=== PATIENT | male | born 1945 | race African-American/Black ===

== ENCOUNTER 2022-08-10 12:22 | Outpatient (REF) | payer MEDICARE, MEDICAID, SELFPAY ==
[2022-08-10 14:03] LABS: MANUAL DIFF FLAG NO
[2022-08-10 14:21] LABS: Basophils Absolute Auto 0.1 X10*3/uL (0.0-0.2); Basophils Percent Auto 0.9 % (0-2); Eosinophils Absolute Auto 0.4 X10*3/uL (0.0-0.4); Eosinophils Percent Auto 6.7 % (0-4); Hematocrit 37.2 % (42.0-52.0); Hemoglobin 11.8 g/dl (14.0-18.0); Imm Gran Abs Auto 0.02 X10*3/uL (0.00-0.03); Imm Gran Pct Auto 0.3 % (0.0-0.4); Lymphocytes Absolute Auto 1.8 X10*3/uL (1.2-4.9); Lymphocytes Percent Auto 27.3 % (20-40); Mean Corpuscular HGB Conc 31.7 g/dl (31.0-36.0); Mean Corpuscular Hemoglobin 26.6 pg (27.0-33.0); Mean Corpuscular Volume 83.8 fL (80.0-98.0); Mean Platelet Volume 11.9 fL (9.4-12.4); Monocytes Absolute Auto 0.7 X10*3/uL (0.1-1.2); Monocytes Percent Auto 11.5 % (2-11); Neutrophils Absolute Auto 3.4 x10*3/uL (2.0-8.3); Neutrophils Percent Auto 53.3 % (45-73); Platelet Count 208 X10*3/uL (160-400); Red Blood Count 4.44 X10*6/uL (4.60-5.80); Red Cell Distribution Width 16.1 % (11.0-16.0); White Blood Count 6.5 X10*3/uL (4.8-10.8)
[2022-08-10 14:40] LABS: Estimated Average Glucose 126 mg/dL
[2022-08-10 15:06] LABS: Alanine Aminotransferase 12 U/L (0-40); Albumin Level 3.9 g/dL (3.5-5.0); Alkaline Phosphatase 94 U/L (39-117); Anion Gap 10 (12-20); Aspartate Amino Transferase 11 U/L (5-37); Bilirubin Total 1.4 mg/dL (0.0-1.0); Blood Urea Nitrogen 16 mg/dL (9-16); Calcium 9.4 mg/dL (8.4-10.2); Carbon Dioxide 27 mmol/L (22-29); Chloride 103 mmol/L (96-108); Estimated Glomerular Filt Rate > 60; Glucose Fasting 116 mg/dL (60-99); Potassium 4.2 mmol/L (3.3-5.1); Sodium 136 mmol/L (135-145); TSH reflex Free T4 2.71 uIU/mL (0.32-4.0)
[2022-08-10 15:46] LABS: Total Protein 7.5 g/dL (6.5-8.0)
[2022-08-10 16:11] LABS: Folate 5.6 ng/mL (> or = 4.0); Vitamin B12 320 pg/mL (200-900)
[2022-08-10 16:33] LABS: Cholesterol 188 mg/dL; HDL Cholesterol 46 mg/dL; Iron 53 mcg/dL (45-160); LDL Cholesterol Calculated 124 mg/dl; Percent Iron Saturation 23 % (15-50); Total Iron Binding Capacity 234 mcg/dL (228-428); Triglycerides 94 mg/dL; Unsaturated Iron Binding 181 ug/dL
[2022-08-16 00:54] LABS: PSA, Ultra Sensitive 6.88 ng/mL
== END 2022-08-10 12:23 | disposition home or self-care (01) ==
LOC: HO.WFDLDS 12:22
PROVIDERS: Visit Provider Nurse Practitioner Family
DX: Z12.5 Encounter for screening for malignant neoplasm of prostate (principal); E11.9 Type 2 diabetes mellitus without complications
CPT/HCPCS: 36415; 80053; 80061; 82607; 82746; 83036; 83540; 84153; 84443; 85025

== ENCOUNTER 2022-12-07 09:42 | Outpatient (REF) | payer MEDICARE, MEDICAID, SELFPAY ==
[2022-12-07 10:41] LABS: Hematocrit 39.9 % (42.0-52.0); Hemoglobin 12.7 g/dl (14.0-18.0); Mean Corpuscular HGB Conc 31.8 g/dl (31.0-36.0); Mean Corpuscular Volume 84.7 fL (80.0-98.0); Mean Platelet Volume 12.1 fL (9.4-12.4); Platelet Count 190 X10*3/uL (160-400); Red Blood Count 4.71 X10*6/uL (4.60-5.80); Red Cell Distribution Width 18.2 % (11.0-16.0); White Blood Count 5.1 X10*3/uL (4.8-10.8)
[2022-12-07 11:11] LABS: Alanine Aminotransferase 16 U/L (0-40); Albumin Level 3.9 g/dL (3.5-5.0); Alkaline Phosphatase 102 U/L (39-117); Anion Gap 12 (12-20); Aspartate Amino Transferase 18 U/L (5-37); Blood Urea Nitrogen 16 mg/dL (9-16); Calcium 9.3 mg/dL (8.4-10.2); Carbon Dioxide 27 mmol/L (22-29); Chloride 106 mmol/L (96-108); Cholesterol 199 mg/dL; Estimated Glomerular Filt Rate > 60; Glucose Fasting 144 mg/dL (60-99); HDL Cholesterol 49 mg/dL; Iron 70 mcg/dL (45-160); LDL Cholesterol Calculated 138 mg/dl; Percent Iron Saturation 27 % (15-50); Potassium 4.4 mmol/L (3.3-5.1); Sodium 141 mmol/L (135-145); Total Iron Binding Capacity 260 mcg/dL (228-428); Total Protein 7.3 g/dL (6.5-8.0); Triglycerides 63 mg/dL; Unsaturated Iron Binding 190 ug/dL
== END 2022-12-07 09:43 | disposition home or self-care (01) ==
LOC: HO.WFDLDS 09:42
PROVIDERS: Visit Provider Nurse Practitioner Family
DX: E11.9 Type 2 diabetes mellitus without complications (principal)
CPT/HCPCS: 36415; 80053; 80061; 83540; 85027

== ENCOUNTER 2023-06-04 09:25 | Outpatient (REF) | payer MEDICARE, MEDICAID, SELFPAY ==
[2023-06-04 12:25] LABS: Cholesterol 141 mg/dL (<200); HDL Cholesterol 45 mg/dL (>40); LDL Cholesterol Calculated 85 mg/dL (<100); Triglycerides 56 mg/dL (<150)
== END 2023-06-04 09:26 | disposition home or self-care (01) ==
LOC: HO.WFDLDS 09:25
PROVIDERS: Visit Provider Nurse Practitioner Family
DX: N40.0 Benign prostatic hyperplasia without lower urinary tract symptoms (principal); E11.9 Type 2 diabetes mellitus without complications
CPT/HCPCS: 36415; 80061

== ENCOUNTER 2023-06-06 12:47 | Outpatient (AMB) | payer MEDICARE, MEDICAID, SELFPAY ==
[2023-06-06 12:50] VITALS: BP 118/70; PULSE 58; RESP 12; TEMP 36.6; O2SAT 99; BMI 25.2
--- NOTE | 2023-06-06 12:50 | MHC.PC.OV ---
Vital Signs 06/06/23 12:50 Height 5 ft 5 in Weight 151 lb 6 oz BMI 25.2 BP 118/70 Blood Pressure Location Lt brachial Position Sitting Respiration 12 Pulse 58 Pulse Source Pulse Oximeter Temp 97.9 F Temp Source Temporal Artery Scan Pulse Oximetry (%) 99 Oxygen Delivery Method Room Air Intake Visit Reasons: 3 mos DM Intake Note: Patient states that his left leg keeps catching cramps that then spread to the next leg. Patient states that left leg was the leg that was used to remove veins for a heart procedure that was done. Client Liaison Required: No Accompanied by: Self / Same As Patient Allergies No Known Allergies Allergy (Verified 06/06/23 13:11) Medication List - Last Reconciled 06/06/23 by Sebas Titus CNP atorvastatin 80 mg PO BEDTIME 30 days clopidogrel 75 mg PO DAILY 90 days cyclobenzaprine 10 mg PO BID PRN empagliflozin (Jardiance) 10 mg PO DAILY gabapentin 300 mg PO DAILY 30 days losartan 50 mg PO DAILY 30 days meloxicam 7.5 mg PO DAILY PRN metformin 500 mg PO BID 30 days metoprolol tartrate 50 mg PO BID 30 days mirtazapine 7.5 mg PO BEDTIME 90 days sodium chloride 1,000 mg PO DAILY tamsulosin 0.4 mg PO BEDTIME Tobacco use date assessed: 12/06/22 Fall risk assessment: No Falls in past year Last assessed Fall Risk: 06/06/23 Dental Screening Dental Screen Date: 06/06/23 Did you have a dental visit in the last 12 months?: No Did you have a dental problem in the last 6 months where you did not have access to dental care?: No Was dental information given to patient?: Yes HPI HPI Comments History of Present Illness Details 77-year-old male presents for diabetes follow-up He is on Jardiance and metformin which he notes he has been taking as prescribed He notes he walks a lot and have been maintaining a healthy diet. He reports intermittent cramps to his BLE at least once a week. He states that his symptoms are aggravated by prolonged walking. No acutes symptoms at this time. He notes that his last eye exam was 15 months ago. 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 He notes he has never been evaluated by Podiatry. [facility] Surgical History H/O heart surgery Family History Father Stroke Mother No problems noted. Social History Housing: Apartment Patient Tobacco Use Status: Never used Tobacco e-Cigarette/Vaping Use: Never Used Second Hand Smoke Exposure: No service: Yes Current occupational status: employed Current occupation: [employer] Cognitive needs: No Hearing needs: No Vision needs: No Questionnaire Thrive Questionnaire Date Thrive assessed: 08/10/22 OLIVER-7 AMB Questionnaire OLIVER-7 Date OLIVER - 7 assessed: 12/06/22 Source: Developed by Drs. Reji Ford, Farhana Lawson, Jonnie Gomez and colleagues, with an educational jozef from [employer]. Review of Systems Const Details: Const Denies chills, Denies fatigue, Denies fever(s), Denies headache(s) and Denies weakness ENT Denies dizziness and Denies headache(s) Card Denies chest pain, Denies lightheadedness, Denies dyspnea and Denies other (Palpitations) Resp Denies cough, Denies dyspnea, Denies wheezing and Denies other ( shortness of breath) GI Denies abdominal pain, Denies melena, Denies hematochezia, Denies change in bowel habits, Denies dyspepsia and Denies nausea Denies hematuria and Denies dysuria Musc Denies abnormal gait, Denies myalgias, Denies arthralgias, Denies numbness and Denies tingling Skin/Breast Denies rash, Denies unusual bruising and Denies wounds Neuro Denies abnormal gait, Denies dizziness, Denies headache(s), Denies memory loss, Denies numbness, Denies Sensory deficit (Neuro), Denies tingling and Denies weakness Psych Denies anxiety, Denies depression, Denies memory loss Endo Denies cold intolerance, Denies fatigue, Denies heat intolerance, Denies polydipsia and Denies polyuria Aller/Immun Denies wheezing Physical exam (Primary Care) Vital Signs: Last Vital Signs Temp 97.9 F 06/06/23 12:50 Pulse 58 06/06/23 12:50 Resp 12 06/06/23 12:50 BP 118/70 06/06/23 12:50 Pulse Ox 99 06/06/23 12:50 Oxygen Delivery Method Room Air 06/06/23 12:50 BMI result Body Mass Index 25.2 Tobacco/Smoking Status: Tobacco use Status Tobacco use date assessed 12/06/22 06/06/23 12:50 Patient Tobacco Use Status Never used Tobacco 06/06/23 12:50 e-Cigarette/Vaping Use Never Used 06/06/23 12:50 Thrive Assessment: Date of Thrive Assessment Date Thrive assessed 08/10/22 06/06/23 12:50 Const Other: General: no acute distress and well developed Nutritional Appearance: well nourished Orientation/consciousness: patient oriented x3 HENMT Head: Yes normocephalic and Yes atraumatic Eyes General: appearance normal, both eyes and all related structures Pupils: Equal, round and reactive pupils present EOM: EOMs intact bilaterally Resp Effort & Inspection: normal respiratory effort Auscultation: clear to auscultation bilaterally Cardio Rate: regular rate Rhythm: regular rhythm Heart sounds: S1 normal heart sound present, S2 normal heart sound present, no gallops, no murmurs and no rubs GI Palpation (GI): No Abdominal aortic bruit present, Soft to palpation, nontender, No hepatosplenomegaly present and No Rebound tenderness present Auscultation: normal bowel sounds General: Yes no CVA tenderness Back/Spine/Pelvis Back: no CVA tenderness Cervical Spine: cervical ROM normal and No Cervical spine tenderness Thoracic/Lumbar Spine: thoraco-lumbar ROM normal, No pain with thoraco-lumbar ROM, No thoracic spinal tenderness and No lumbar spinal tenderness Extrem General: Yes normal to inspection, No edema and No calf tenderness Skin General: warm and dry. Normal skin color. Normal skin turgor Lesions: no lesions Rashes: no rashes Trauma: no lacerations or abrasions Wounds: no wounds Nails: normal Neuro General: patient oriented x3, gait normal and no focal neuro deficit Cranial nerves: Yes Equal, round and reactive pupils present Cognition (Neuro): normal cognition Gait exam (Neuro): Normal gait present Sensory Exam: No Sensory deficit (Neuro) Psych Appearance: grossly normal Affect: normal affect Attitude: cooperative Thought process: Normal thought process present Results AMB Hemoglobin A1c AMB Hemoglobin A1c 6.8 % Last Edit by Tosha Werner MA on 06/06/23 14:06 Assessment and Plan Assessment & Plan (1) Type 2 diabetes mellitus: Code(s): E11.9 - Type 2 diabetes mellitus without complications Qualifiers: Diabetes mellitus complication status: with neurologic complications Plan: His A1c today 6.8%, within goal of less than 7.0%. Previous A1c was 6.8% Recent LDL is 85, within goal of less than 100 Continue to take Jardiance and metformin as prescribed Take atorvastatin as prescribed ADA diet and routine exercise encouraged Follow-up in 3 months for diabetes, extended physical exam, and depression Return sooner with symptoms or concerns Verbalized understanding and agreed with treatment plan. 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 He has not been evaluated by Podiatry Referred to new curb machine operator Podiatry referral made. (2) Hypertension: Code(s): I10 - Essential (primary) hypertension Qualifiers: Hypertension type: primary hypertension Qualified Code(s): I10 - Essential (primary) hypertension Plan: His blood pressure is 118/70, within goal of less than 130/80 Continue to take losartan and metoprolol as prescribed Low-sodium diet encouraged Follow-up in 3 months Verbalized understanding and agreed with treatment plan. (3) Bilateral leg cramps: Code(s): R25.2 - Cramp and spasm Plan: Reports intermittent cramps to his BLE at least once a week. He states that his symptoms are aggravated by prolonged walking. No acutes symptoms at this time. Encouraged to avoid prolonged walking Stretching, massage, and warm/cool compresses encouraged Follow-up with worsening or new symptoms Verbalized understanding and agreed with treatment plan. Orders: Orders AMB Hemoglobin A1c Today Z13.9 - Encounter for screening, unspecified Referrals Podiatry Referral E11.9 - Type 2 diabetes mellitus without complications Ophthalmology Referral E11.9 - Type 2 diabetes mellitus without complications, I10 - Essential (primary) hypertension Medications: Refilled losartan 50 mg PO DAILY 30 days 30 tabs 4RF Coding Level of Care Code Est Pt Level 3 (77455) Diagnoses Type 2 diabetes mellitus E11.9 Diabetes mellitus complication status: with neurologic complications Primary hypertension I10 Hypertension type: primary hypertension Bilateral leg cramps R25.2
== END 2023-06-06 13:29 | disposition home or self-care (01) ==
PROVIDERS: PCP Nurse Practitioner Family; Visit Provider Nurse Practitioner Family
DX: E11.9 Type 2 diabetes mellitus without complications (principal); I10 Essential (primary) hypertension; R25.2 Cramp and spasm
CPT/HCPCS: 83036; 99213

== ENCOUNTER 2023-08-27 13:03 | Outpatient (AMB) | payer MEDICARE, MEDICAID, SELFPAY ==
[2023-08-27 13:18] VITALS: BP 134/70; PULSE 110; RESP 13; TEMP 36.6; O2SAT 99; BMI 24.8
--- NOTE | 2023-08-27 13:18 | A.OFFPC_ITS ---
Vital Signs 08/27/23 13:18 Height 5 ft 5 in Weight 149 lb BMI 24.8 BP 134/70 Blood Pressure Location Rt brachial Position Sitting Respiration 13 Pulse 110 H Pulse Source Pulse Oximeter Temp 97.8 F Temp Source Temporal Artery Scan Pulse Oximetry (%) 99 Oxygen Delivery Method Room Air Intake Visit Reasons: [facility] follow up Intake Note: Patient states that his moth keeps going dry and states that catheter is leaking anytime he sits. Dental Treatment Coordinator Required: No Accompanied by: Self / Same As Patient Allergies No Known Allergies Allergy (Verified 08/27/23 13:32) Medication List - Last Reconciled 08/27/23 by Sebas Titus CNP atorvastatin 80 mg PO BEDTIME 30 days clopidogrel 75 mg PO DAILY 90 days cyclobenzaprine 10 mg PO BID PRN empagliflozin (Jardiance) 10 mg PO DAILY gabapentin 300 mg PO DAILY 30 days losartan 50 mg PO DAILY 30 days meloxicam 7.5 mg PO DAILY PRN metformin 500 mg PO BID 30 days metoprolol tartrate 50 mg PO BID 30 days mirtazapine 7.5 mg PO BEDTIME 90 days sodium chloride 1,000 mg PO DAILY tamsulosin 0.4 mg PO BEDTIME Tobacco use date assessed: 12/06/22 Last assessed Fall Risk: 08/27/23 Dental Screening Dental Screen Date: 08/27/23 Did you have a dental visit in the last 12 months?: No Did you have a dental problem in the last 6 months where you did not have access to dental care?: No Was dental information given to patient?: Yes HPI HPI Comments History of Present Illness Details 77-year-old male presents for follow-up visit He was evaluated and treated at [facility] ED for urinary retention on 12/22/2022. He reported history of urinary retention with four ED visits. Physical exam is benign except for bladder distension likely secondary to BPH. BMP and urinalysis were unrevealing. Redmond catheter was placed for urine drainage. He was advised to follow-up with his PCP today for trial of removal of Redmond catheter. He was referred to [facility] urology for elevated PSA levels. However, he missed his appointments in April and June. He notes that he has not be able to get to his appointment due to transportation issues. He offers no complaints and denies acute symptoms at this time. [facility] Medical History (Updated 08/27/23 @ 13:49 by Sebas Titus CNP) No pertinent past medical history Surgical History H/O heart surgery Family History Father Stroke Mother No problems noted. Social History Housing: Apartment Patient Tobacco Use Status: Never used Tobacco e-Cigarette/Vaping Use: Never Used Second Hand Smoke Exposure: No service: Yes Current occupational status: employed Current occupation: [employer] Cognitive needs: No Hearing needs: No Vision needs: No Questionnaire Thrive Questionnaire Date Thrive assessed: 08/10/22 OLIVER-7 AMB Questionnaire OLIVER-7 Date OLIVER - 7 assessed: 12/06/22 Source: Developed by Drs. Reji Ford, Farhana Lawson, Jonnie Gomez and colleagues, with an educational jozef from [employer]. Review of Systems Const Details: Const Denies chills, Denies fatigue, Denies fever(s), Denies headache(s) and Denies weakness ENT Denies dizziness and Denies headache(s) Card Denies chest pain, Denies lightheadedness, Denies dyspnea and Denies other (Palpitations) Resp Denies cough, Denies dyspnea, Denies wheezing and Denies other ( shortness of breath) GI Denies abdominal pain, Denies melena, Denies hematochezia, Denies change in bowel habits, Denies dyspepsia and Denies nausea Denies hematuria and Denies dysuria Musc Denies abnormal gait, Denies myalgias, Denies arthralgias, Denies numbness and Denies tingling Skin/Breast Denies rash, Denies unusual bruising and Denies wounds Neuro Denies abnormal gait, Denies dizziness, Denies headache(s), Denies memory loss, Denies numbness, Denies Sensory deficit (Neuro), Denies tingling and Denies weakness Psych Denies anxiety, Denies depression, Denies memory loss Endo Denies cold intolerance, Denies fatigue, Denies heat intolerance, Denies polydipsia and Denies polyuria Aller/Immun Denies wheezing Physical exam (Primary Care) Tobacco/Smoking Status: Tobacco use Status Tobacco use date assessed 12/06/22 06/06/23 12:50 Patient Tobacco Use Status Never used Tobacco 06/06/23 12:50 e-Cigarette/Vaping Use Never Used 06/06/23 12:50 Thrive Assessment: Date of Thrive Assessment Date Thrive assessed 08/10/22 06/06/23 12:50 Const Other: General: no acute distress and well developed Nutritional Appearance: well nourished Orientation/consciousness: patient oriented x3 [facility] Head: Yes normocephalic and Yes atraumatic Eyes General: appearance normal, both eyes and all related structures Pupils: Equal, round and reactive pupils present EOM: EOMs intact bilaterally Resp Effort & Inspection: normal respiratory effort Auscultation: clear to auscultation bilaterally Cardio Rate: regular rate Rhythm: regular rhythm Heart sounds: S1 normal heart sound present, S2 normal heart sound present, no gallops, no murmurs and no rubs GI Palpation (GI): No Abdominal aortic bruit present, Soft to palpation, nontender, No hepatosplenomegaly present and No Rebound tenderness present Auscultation: normal bowel sounds General: Yes no CVA tenderness Back/Spine/Pelvis Back: no CVA tenderness Cervical Spine: cervical ROM normal and No Cervical spine tenderness Thoracic/Lumbar Spine: thoraco-lumbar ROM normal, No pain with thoraco-lumbar ROM, No thoracic spinal tenderness and No lumbar spinal tenderness Extrem General: Yes normal to inspection, No edema and No calf tenderness Skin General: warm and dry. Normal skin color. Normal skin turgor Neuro General: patient oriented x3, gait normal and no focal neuro deficit Cranial nerves: Yes Equal, round and reactive pupils present Cognition (Neuro): normal cognition Gait exam (Neuro): Normal gait present Sensory Exam: No Sensory deficit (Neuro) Psych Appearance: grossly normal Affect: normal affect Attitude: cooperative Thought process: Normal thought process present Assessment and Plan Assessment & Plan (1) BPH (benign prostatic hyperplasia): Code(s): N40.0 - Benign prostatic hyperplasia without lower urinary tract symptoms Plan: His last PSA was 6.88 a year ago He was referred to Urology. However, he has had 2 cancellations and have not established. He notes that he does not have transportation to get to his appointments He met with the community navigator who provided assistance with transportation for his medical appointments Advised to call Urology and schedule an appointment Return or go to the ED with worsening or new symptoms Follow-up in 2-3 weeks for diabetes and hypertension Verbalized understanding and agreed with the treatment plan (2) Urinary retention: Code(s): R33.9 - Retention of urine, unspecified Plan: Denies urinary retention or suprapubic tenderness Redmond catheter removed without complications Plan as above (3) Hypertension: Code(s): I10 - Essential (primary) hypertension Qualifiers: Hypertension type: primary hypertension Qualified Code(s): I10 - Essential (primary) hypertension Plan: Blood pressure is 134/70, slightly above goal of less than 130/80 Continue current treatment regimen Low-sodium diet encouraged Follow-up in 2-3 weeks Verbalized understanding and agreed with treatment plan Orders: Orders Lipid Panel Today E11.9 - Type 2 diabetes mellitus without complications Coding Level of Care Code Est Pt Level 3 (60935) Diagnoses BPH (benign prostatic hyperplasia) N40.0 Urinary retention R33.9 Primary hypertension I10 Hypertension type: primary hypertension
== END 2023-08-27 15:00 | disposition home or self-care (01) ==
PROVIDERS: PCP Nurse Practitioner Family; Visit Provider Nurse Practitioner Family
DX: N40.0 Benign prostatic hyperplasia without lower urinary tract symptoms (principal); R33.9 Retention of urine, unspecified; I10 Essential (primary) hypertension
CPT/HCPCS: 99213

== ENCOUNTER 2023-09-12 11:39 | Outpatient (REF) | payer MEDICARE, MEDICAID, SELFPAY | END 2023-09-12 11:40 | disposition home or self-care (01) | LOC: HO.WFDLDS 11:39 | PROVIDERS: Visit Provider Nurse Practitioner Family | DX: E11.9 Type 2 diabetes mellitus without complications (principal) | CPT/HCPCS: 36415; 80061 ==

== ENCOUNTER 2023-09-17 15:00 | Outpatient (AMB) | payer MEDICARE, MEDICAID, SELFPAY ==
[2023-09-17 15:03] VITALS: BP 144/84; PULSE 110; RESP 13; TEMP 36.6; O2SAT 99; BMI 24.9
--- NOTE | 2023-09-17 15:03 | MHC.PC.OV ---
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 Required: No Accompanied by: Friend Allergies No Known Allergies Allergy (Verified 09/17/23 15:11) Tobacco use date assessed: 09/17/23 Fall risk assessment: No Falls in past year Last assessed Fall Risk: 09/17/23 Dental Screening Dental Screen Date: 09/17/23 Did you have a dental visit in the last 12 months?: No Did you have a dental problem in the last 6 months where you did not have access to dental care?: No Was dental information given to patient?: Patient has dentist HPI HPI Comments History of Present Illness Details 78-year-old male, accompanied by his friend/customer project manager, presents for hypertension, diabetes, and recent ED follow-up visit He was evaluated at [facility] ED on 09/08/2023 for obstructed Redmond catheter, bleeding around the Redmond catheter, and abdominal pain. The catheter was irrigated. No signs of infection noted. He was advised to follow-up with [facility] He notes that the Redmond catheter was reinserted by [facility] ED after it was last removed by his PCP He states that he as a follow up appointment with urology on 10/03/2023 He offers no complaints and denies acute symptoms at this time [facility] Medical History No pertinent past medical history Surgical History H/O heart surgery Family History Father Stroke Mother No problems noted. Social History Housing: Apartment Patient Tobacco Use Status: Never used Tobacco e-Cigarette/Vaping Use: Never Used Second Hand Smoke Exposure: No service: Yes Current occupational status: employed Current occupation: [employer] Cognitive needs: No Hearing needs: No Vision needs: No Questionnaire Thrive Questionnaire Date Thrive assessed: 08/10/22 OLIVER-7 AMB Questionnaire OLIVER-7 Date OLIVER - 7 assessed: 12/06/22 Source: Developed by Drs. Reji Ford, Farhana Lawson, Jonnie Gomez and colleagues, with an educational jozef from [email or web address]. Review of Systems Const Details: Const Denies chills, Denies fatigue, Denies fever(s), Denies headache(s) and Denies weakness ENT Denies dizziness and Denies headache(s) Card Denies chest pain, Denies lightheadedness, Denies dyspnea and Denies other (Palpitations) Resp Denies cough, Denies dyspnea, Denies wheezing and Denies other ( shortness of breath) GI Denies abdominal pain, Denies melena, Denies hematochezia, Denies change in bowel habits, Denies dyspepsia and Denies nausea Denies hematuria and Denies dysuria Musc Denies abnormal gait, Denies myalgias, Denies arthralgias, Denies numbness and Denies tingling Skin/Breast Denies rash, Denies unusual bruising and Denies wounds Neuro Denies abnormal gait, Denies dizziness, Denies headache(s), Denies memory loss, Denies numbness, Denies Sensory deficit (Neuro), Denies tingling and Denies weakness Psych Denies anxiety, Denies depression, Denies memory loss Endo Denies cold intolerance, Denies fatigue, Denies heat intolerance, Denies polydipsia and Denies polyuria Aller/Immun Denies wheezing Physical exam (Primary Care) Tobacco/Smoking Status: Tobacco use Status Tobacco use date assessed 12/06/22 08/27/23 13:24 Patient Tobacco Use Status Never used Tobacco 08/27/23 13:24 e-Cigarette/Vaping Use Never Used 08/27/23 13:24 Thrive Assessment: Date of Thrive Assessment Date Thrive assessed 08/10/22 08/27/23 15:02 Const Other: General: no acute distress and well developed Nutritional Appearance: well nourished Orientation/consciousness: patient oriented x3 HENMT Head: Yes normocephalic and Yes atraumatic Eyes General: appearance normal, both eyes and all related structures Pupils: Equal, round and reactive pupils present EOM: EOMs intact bilaterally Resp Effort & Inspection: normal respiratory effort Auscultation: clear to auscultation bilaterally Cardio Rate: regular rate Rhythm: regular rhythm Heart sounds: S1 normal heart sound present, S2 normal heart sound present, no gallops, no murmurs and no rubs GI Palpation (GI): No Abdominal aortic bruit present, Soft to palpation, nontender, No hepatosplenomegaly present and No Rebound tenderness present Auscultation: normal bowel sounds General: Yes no CVA tenderness Back/Spine/Pelvis Back: no CVA tenderness Cervical Spine: cervical ROM normal and No Cervical spine tenderness Thoracic/Lumbar Spine: thoraco-lumbar ROM normal, No pain with thoraco-lumbar ROM, No thoracic spinal tenderness and No lumbar spinal tenderness Extrem General: Yes normal to inspection, No edema and No calf tenderness Skin General: warm and dry. Normal skin color. Normal skin turgor Lesions: no lesions Rashes: no rashes Trauma: no lacerations or abrasions Wounds: no wounds Nails: normal Neuro General: patient oriented x3, gait normal and no focal neuro deficit Cranial nerves: Yes Equal, round and reactive pupils present Cognition (Neuro): normal cognition Gait exam (Neuro): Normal gait present Sensory Exam: No Sensory deficit (Neuro) Psych Appearance: grossly normal Affect: normal affect Attitude: cooperative Thought process: Normal thought process present Results AMB Hemoglobin A1c AMB Hemoglobin A1c 6.4 % Last Edit by Tosha Werner MA on 09/17/23 15:21 Assessment and Plan Assessment & Plan (1) Hypertension: Code(s): I10 - Essential (primary) hypertension Qualifiers: Hypertension type: primary hypertension Qualified Code(s): I10 - Essential (primary) hypertension Plan: Blood pressure is 140/80, above goal of less than 130/80, heart rate is 96 Will increase metoprolol to 75 mg twice daily Continue to take losartan as prescribed He admits to maintaining a low-salt diet Low-salt diet encouraged Follow-up for nurse visit for blood pressure check in 1 week Follow-up with PCP in 1 month or return sooner with symptoms or concerns Verbalized understanding and agreed with treatment plan (2) Type 2 diabetes mellitus: Code(s): E11.9 - Type 2 diabetes mellitus without complications Qualifiers: Diabetes mellitus complication status: with neurologic complications Plan: A1c today 6.4%, within goal of less than 7.0%. Previous A1c was 6.8% Continue current treatment regimen ADA diet and routine exercise encouraged Will recheck A1c in 3 months Follow-up in 3 months Verbalized understanding and agreed with treatment plan (3) Redmond catheter in place: Code(s): Z97.8 - Presence of other specified devices Plan: No acute symptoms Adequate hydration encouraged Referred to [facility] for medication management and catheter care Follow-up with urology as planned Return with symptoms or concerns Verbalized understanding and agreed with treatment plan Orders: Orders AMB Hemoglobin A1c Today E11.9 - Type 2 diabetes mellitus without complications [facility]errals [facility] Referral E11.9 - Type 2 diabetes mellitus without complications, E78.5 - Hyperlipidemia, unspecified, F32.A - Depression, unspecified, G89.29 - Other chronic pain, I10 - Essential (primary) hypertension, M54.31 - Sciatica, right side, M54.50 - Low back pain, unspecified, R33.9 - Retention of urine, unspecified, Z97.8 - Presence of other specified devices Medications: New metoprolol tartrate 75 mg PO BID 60 tabs 3RF 30 days Discontinued metoprolol tartrate Discontinued Reason: Doctor's Order 50 mg PO BID 60 tabs 3RF 30 days Coding Level of Care Code Est Pt Level 4 (48644) Diagnoses Primary hypertension I10 Hypertension type: primary hypertension Type 2 diabetes mellitus E11.9 Diabetes mellitus complication status: with neurologic complications Redmond catheter in place Z97.8
[2023-09-17 15:27] VITALS: BP 140/80; PULSE 96
== END 2023-09-17 15:46 | disposition home or self-care (01) ==
PROVIDERS: PCP Nurse Practitioner Family; Visit Provider Nurse Practitioner Family
DX: I10 Essential (primary) hypertension (principal); E11.9 Type 2 diabetes mellitus without complications; Z97.8 Presence of other specified devices
CPT/HCPCS: 83036; 99214

== ENCOUNTER 2023-10-05 13:22 | Outpatient (AMB) | payer MEDICARE, MEDICAID, SELFPAY ==
--- NOTE | 2023-10-05 13:23 | A.OFFVIS_ITS ---
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 Accompanied by: Self / Same As Patient Allergies No Known Allergies Allergy (Verified 11/26/23 11:58) Medication List - Last Reconciled 10/05/23 by Mally Boss MD acetaminophen ER (Tylenol Arthritis Pain) 650 mg PO Q12H PRN atorvastatin 80 mg PO BEDTIME 30 days ciprofloxacin HCl 500 mg PO BID 3 days clopidogrel 75 mg PO DAILY 90 days cyclobenzaprine 10 mg PO BID PRN empagliflozin (Jardiance) 10 mg PO DAILY finasteride (Proscar) 5 mg PO DAILY 90 days gabapentin 300 mg PO DAILY 30 days losartan 50 mg PO DAILY 30 days metformin 500 mg PO BID 30 days metoprolol tartrate 75 mg PO BID 30 days mirtazapine 7.5 mg PO BEDTIME 90 days sodium chloride 1,000 mg PO DAILY tamsulosin (Flomax) 0.4 mg PO BID HPI HPI Comments History of Present Illness Details Kalia is a 78-year-old male with history of BPH, diabetes. He presents with a Redmond catheter. He states he went into urinary retention in August and was seen at the [facility] ED and a Redmond catheter was placed. The patient is on tamsulosin. He states he has seen blood in the urine. I have discussed voiding trial as well as cystoscopy today. Cystoscopy findings: Trilobar enlargement of the prostate, bladder wall thic kening The patient voided after the cystoscopy. Will continue tamsulosin increased b.i.d. and start Proscar 5 mg daily [facility] Medical History No pertinent past medical history Surgical History H/O heart surgery Family History Father Stroke Mother No problems noted. Sister Blind Social History Housing: Apartment Patient Tobacco Use Status: Never used Tobacco e-Cigarette/Vaping Use: Never Used Second Hand Smoke Exposure: No service: Yes Current occupational status: employed Current occupation: [employer] Cognitive needs: No Hearing needs: No Vision needs: No Review of Systems Const All systems reviewed & are unremarkable except as noted in HPI and below Reports no additional complaints Eyes Reports no additional complaints ENT Reports no additional complaints Card Denies dyspnea Resp Denies cough and Denies dyspnea GI Reports no additional complaints Musc Reports no additional complaints Skin/Breast Denies rash and Denies unusual bruising Neuro Reports no additional complaints Psych Reports no additional complaints Endo Reports no additional complaints Oziel/Lymph Reports no additional complaints Aller/Immun Reports no additional complaints Physical Exam Const General: healthy appearing, no acute distress and well developed Orientation/consciousness: patient oriented x3 HEENT Head: Yes normocephalic and Yes atraumatic Eyes Conjunctivae: conjunctivae normal Neck Neck: Yes normal visual inspection Chest Chest palpation & inspection: normal inspection of the chest Resp Effort & Inspection: normal respiratory effort Cardio Rate: regular rate GI Inspection: Yes normal to inspection Palpation (GI): Soft to palpation Penis: normal penis Scrotum: scrotum normal Neuro General: patient oriented x3 Extrem General: No pedal edema Psych Appearance: grossly normal Affect: normal affect Office Procedures Cystoscopy Consent Discussed risk and benefit or proposed procedure with the patient. Information consent for procedure given to the patient. Discussed technical aspects, risks, benefits and alternatives in full. Addressed all of the patient's questions and concerns regarding the procedure. The patient demonstrated knowledge and understanding. They wish to proceed with this procedure. Preparation The patient was prepped in the usual manner. A septic tank installer was present and in the room. Genitalia was prepped with betadine solution in a sterile manner. Lidocaine Jelly 2% was placed into the urethra and 16Fr flexible Olympus cystoscope was inserted into the meatus after adequate lubrication. Procedure Time out per protocol performed. Bladder Inspection Bladder Inspection: The bladder was inspected in its entirety with utilization retroflexion displaying: Tumor(s): none visualized Trabeculation: moderate Mucosal Erthema: Erythematous changes seen on the posterior wall consistent with presence of prior catheter Orifices: normal shape and position Urethra: normal Cystoscopy findings: prostatic urethra - trilobar enlarged, bulbous urethra WNL, no suspicious bladder lesions visualized 18 [address] removed per Dr Graf for cysto. [id number] DISPOSABLE SCOPE URO-G FLEXIBLE SCOPE Procedure code (CPT) selection complete Office Meds lidocaine HCl 2 % mucosal jelly in applicator Performing Provider: Mally Boss MD Performing Location: [facility] Administered by: Josefina Ramirez RN on 10/05/23 13:45 Dose Route Admin Location Dispensed Lot Number Expiration Date NDC Process Artist 10 mL intra-urethral 20 mL naproxen 500 mg tablet Performing Provider: Mally Boss MD Performing Location: [facility] Administered by: Josefina Ramirez RN on 10/05/23 13:45 Dose Route Admin Location Dispensed Lot Number Expiration Date NDC Process Artist 500 mg PO 1 tab ciprofloxacin HCl 500 mg tablet Performing Provider: Mally Boss MD Performing Location: [facility] Administered by: Josefina Ramirez RN on 10/05/23 13:45 Dose Route Admin Location Dispensed Lot Number Expiration Date NDC Process Artist 500 mg PO 1 tab Assessment & Plan Assessment & Plan (1) Urinary retention: Code(s): R33.9 - Retention of urine, unspecified (2) BPH (benign prostatic hyperplasia): Code(s): N40.0 - Benign prostatic hyperplasia without lower urinary tract symptoms Plan Continue tamsulosin increased b.i.d. and start Proscar 5 mg daily renal/Bladder US Orders: Orders AMB Cystoscopy 10/05/23 R33.9 - Retention of urine, unspecified, N40.0 - Benign prostatic hyperplasia without lower urinary tract symptoms US retroperitoneal comp 10/05/23 R33.9 - Retention of urine, unspecified, N40.0 - Benign prostatic hyperplasia without lower urinary tract symptoms Medications: New ciprofloxacin HCl 500 mg PO BID 6 tabs 0RF 3 days finasteride (Proscar) 5 mg PO DAILY 90 tabs 3RF 90 days C61 - Malignant neoplasm of prostate tamsulosin (Flomax) increase tamsulosing to bid 0.4 mg PO BID 60 caps 3RF Discontinued meloxicam Discontinued Reason: Doctor's Order 7.5 mg PO DAILY PRN 30 tabs 1RF back pain Patient Instructions: The patient had an opportunity to ask questions regarding treatment plan. All questions were answered. Laboratory studies and physical exam results were discussed and reviewed in detail. No major barriers to understanding were identified. The patient expressed understanding and agreement with the above treatment plan. The patient is aware they should contact our office by phone for worsening of their current condition or the appearance of new symptoms. Compliance is encouraged with any medications and followup testing that is ordered. It is a privilege to be allowed the opportunity to participate in the urologic care of your patient. If you have any questions or concerns regarding treatment for the above conditions please do not hesitate to contact me. The office telephone contact is [phone]. This note is constructed in part using voice recognition software. While every effort has been made to ensure accuracy education supervisor errors may have been included. Yours sincerely, Mally Boss MD Coding Level of Care Code New Pt Level 3 (89996) Diagnoses Urinary retention R33.9 BPH (benign prostatic hyperplasia) N40.0 CPT Codes Cystoscopy - CPT: 95767-[id number] ([id number])
== END 2023-10-05 14:58 | disposition home or self-care (01) ==
LOC: HO.HUSH 13:22
PROVIDERS: PCP Nurse Practitioner Family; Visit Provider Urology
DX: R33.9 Retention of urine, unspecified (principal); N40.0 Benign prostatic hyperplasia without lower urinary tract symptoms
CPT/HCPCS: 52000; 99203

== ENCOUNTER → 2023-10-05 13:22 | Outpatient (BNVA) | payer MEDICARE, MEDICAID, SELFPAY | PROVIDERS: PCP Nurse Practitioner Family; Visit Provider Urology | DX: N40.1 Benign prostatic hyperplasia with lower urinary tract symptoms (principal); R33.9 Retention of urine, unspecified | CPT/HCPCS: 52000; 99202 ==

== ENCOUNTER 2023-10-22 12:44 | Outpatient (AMB) | payer MEDICARE, MEDICAID, SELFPAY ==
[2023-10-22 12:52] VITALS: BP 118/70; PULSE 55; RESP 13; TEMP 36.3; O2SAT 94; BMI 24.2
--- NOTE | 2023-10-22 12:52 | MHC.PC.OV ---
Vital Signs 10/22/23 12:52 Height 5 ft 5 in Weight 145 lb 8 oz BMI 24.2 BP 118/70 Blood Pressure Location Rt brachial Position Sitting Respiration 13 Pulse 55 Pulse Source Pulse Oximeter Temp 97.3 F Temp Source Temporal Artery Scan Pulse Oximetry (%) 94 Oxygen Delivery Method Room Air Intake Visit Reasons: htn Operations Support Analyst Required: No Accompanied by: Self / Same As Patient Allergies No Known Allergies Allergy (Verified 10/22/23 13:22) Medication List - Last Reconciled 10/22/23 by Sebas Titus CNP acetaminophen ER (Tylenol Arthritis Pain) 650 mg PO Q12H PRN atorvastatin 80 mg PO BEDTIME 30 days ciprofloxacin HCl 500 mg PO BID 3 days clopidogrel 75 mg PO DAILY 90 days cyclobenzaprine 10 mg PO BID PRN empagliflozin (Jardiance) 10 mg PO DAILY finasteride (Proscar) 5 mg PO DAILY 90 days gabapentin 300 mg PO DAILY 30 days losartan 50 mg PO DAILY 30 days metformin 500 mg PO BID 30 days metoprolol tartrate 75 mg PO BID 30 days mirtazapine 7.5 mg PO BEDTIME 90 days sodium chloride 1,000 mg PO DAILY tamsulosin (Flomax) 0.4 mg PO BID Tobacco use date assessed: 09/17/23 Fall risk assessment: No Falls in past year Last assessed Fall Risk: 10/22/23 Dental Screening Dental Screen Date: 10/22/23 Did you have a dental visit in the last 12 months?: No Did you have a dental problem in the last 6 months where you did not have access to dental care?: No Was dental information given to patient?: Yes HPI HPI Comments History of Present Illness Details 78-year-old male presents for hypertension follow-up He admits to taking his medications as prescribed without adverse reactions He offers no complaints and denies acute symptoms at this time He notes he is currently being followed by [facility] urology. His full catheter was removed. He has been taking Flomax twice daily and finasteride daily PFSH Medical History No pertinent past medical history Surgical History H/O heart surgery Family History Father Stroke Mother No problems noted. Sister Blind Social History Housing: Apartment Patient Tobacco Use Status: Never used Tobacco e-Cigarette/Vaping Use: Never Used Second Hand Smoke Exposure: No service: Yes Current occupational status: employed Current occupation: [employer] Cognitive needs: No Hearing needs: No Vision needs: No Questionnaire Thrive Questionnaire Date Thrive assessed: 08/10/22 OLIVER-7 AMB Questionnaire OLIVER-7 Date OLIVER - 7 assessed: 12/06/22 Source: Developed by Drs. Reji Ford, Farhana Lawson, Jonnie Gomez and colleagues, with an educational jozef from [employer]. Review of Systems Const Details: Const Denies chills, Denies fatigue, Denies fever(s), Denies headache(s) and Denies weakness ENT Denies dizziness and Denies headache(s) Card Denies chest pain, Denies lightheadedness, Denies dyspnea and Denies other (Palpitations) Resp Denies cough, Denies dyspnea, Denies wheezing and Denies other ( shortness of breath) GI Denies abdominal pain, Denies melena, Denies hematochezia, Denies change in bowel habits, Denies dyspepsia and Denies nausea Denies hematuria and Denies dysuria Musc Denies abnormal gait, Denies myalgias, Denies arthralgias, Denies numbness and Denies tingling Skin/Breast Denies rash, Denies unusual bruising and Denies wounds Neuro Denies abnormal gait, Denies dizziness, Denies headache(s), Denies memory loss, Denies numbness, Denies Sensory deficit (Neuro), Denies tingling and Denies weakness Psych Denies anxiety, Denies depression, Denies memory loss Endo Denies cold intolerance, Denies fatigue, Denies heat intolerance, Denies polydipsia and Denies polyuria Aller/Immun Denies wheezing Physical exam (Primary Care) Vital Signs: Last Vital Signs Temp 97.3 F 10/22/23 12:52 Pulse 55 10/22/23 12:52 Resp 13 10/22/23 12:52 BP 118/70 10/22/23 12:52 Pulse Ox 94 10/22/23 12:52 Oxygen Delivery Method Room Air 02/12/24 12:52 BMI result Body Mass Index 24.2 Tobacco/Smoking Status: Tobacco use Status Tobacco use date assessed 09/17/23 10/22/23 13:00 Patient Tobacco Use Status Never used Tobacco 10/22/23 13:00 e-Cigarette/Vaping Use Never Used 10/22/23 13:00 Thrive Assessment: Date of Thrive Assessment Date Thrive assessed 08/10/22 10/22/23 13:00 Const Other: General: no acute distress and well developed Nutritional Appearance: well nourished Orientation/consciousness: patient oriented x3 HENMT Head: Yes normocephalic and Yes atraumatic Eyes General: appearance normal, both eyes and all related structures Pupils: Equal, round and reactive pupils present EOM: EOMs intact bilaterally Resp Effort & Inspection: normal respiratory effort Auscultation: clear to auscultation bilaterally Cardio Rate: regular rate Rhythm: regular rhythm Heart sounds: S1 normal heart sound present, S2 normal heart sound present, no gallops, no murmurs and no rubs GI Palpation (GI): No Abdominal aortic bruit present, Soft to palpation, nontender, No hepatosplenomegaly present and No Rebound tenderness present Auscultation: normal bowel sounds General: Yes no CVA tenderness Back/Spine/Pelvis Back: no CVA tenderness Cervical Spine: cervical ROM normal and No Cervical spine tenderness Thoracic/Lumbar Spine: thoraco-lumbar ROM normal, No pain with thoraco-lumbar ROM, No thoracic spinal tenderness and No lumbar spinal tenderness Extrem General: Yes normal to inspection, No edema and No calf tenderness Skin General: warm and dry. Normal skin color. Normal skin turgor Neuro General: patient oriented x3, gait normal and no focal neuro deficit Cranial nerves: Yes Equal, round and reactive pupils present Cognition (Neuro): normal cognition Gait exam (Neuro): Normal gait present Sensory Exam: No Sensory deficit (Neuro) Psych Appearance: grossly normal Affect: normal affect Attitude: cooperative Thought process: Normal thought process present Assessment and Plan Assessment & Plan (1) Hypertension: Code(s): I10 - Essential (primary) hypertension Qualifiers: Hypertension type: primary hypertension Qualified Code(s): I10 - Essential (primary) hypertension Plan: Blood pressure is 118/70, within goal of less than 140/80 Continue current treatment regimen Low-sodium diet encouraged Will continue to monitor Follow-up in 1 month for an extended physical exam Return sooner with symptoms or concerns Verbalized understanding and agreed with treatment plan (2) Laboratory tests ordered as part of a complete physical exam (CPE): Code(s): Z00.00 - Encounter for general adult medical examination without abnormal findings Plan: Fasting labs ordered in preparation of a complete physical exam. Advised to fast for at least 10 hours before getting labs drawn. May drink water Verbalized understanding and agreed with treatment plan. Orders: Orders Complete Blood Count Auto Diff Today Z00.00 - Encounter for general adult medical examination without abnormal findings Lipid Panel Today Z00.00 - Encounter for general adult medical examination without abnormal findings UA CC w/rflx Micro + Cult Today Z00.00 - Encounter for general adult medical examination without abnormal findings PSA, Ultra Sensitive Today Z00.00 - Encounter for general adult medical examination without abnormal findings Complete Blood Count no Diff Today Z00.00 - Encounter for general adult medical examination without abnormal findings TSH reflex Free T4 Today Z00.00 - Encounter for general adult medical examination without abnormal findings Coding Level of Care Code Est Pt Level 3 (12434) Diagnoses Primary hypertension I10 Hypertension type: primary hypertension Laboratory tests ordered as part of a complete physical exam (CPE) Z00.00
== END 2023-10-22 13:59 | disposition home or self-care (01) ==
PROVIDERS: PCP Nurse Practitioner Family; Visit Provider Nurse Practitioner Family
DX: I10 Essential (primary) hypertension (principal)
CPT/HCPCS: 99213

== ENCOUNTER 2023-11-14 11:22 | Outpatient (REF) | payer MEDICARE, MEDICAID, SELFPAY ==
--- NOTE | ~2023-11-14 | US_ITS ---
EXAMINATION: US RETROPERITONEAL LIMITED (RENAL ONLY) CLINICAL INFORMATION: Retention of urine, unspecified. COMPARISON: None available. TECHNIQUE: Real-time imaging of the kidneys. FINDINGS: RIGHT KIDNEY: 10.4 x 5.1 x 6.8 cm (SAG x AP x TRV). The kidney is normal in size, contour, and echogenicity. Renal cortical thickness is normal. No renal calculi or hydronephrosis. At the interpolar aspect, a 1.0 x 0.9 x 0.9 cm peripherally calcified, shadowing cyst is seen. LEFT KIDNEY: 7.8 x 5.7 x 3.9 cm (SAG x AP x TRV). The kidney is normal in contour, and echogenicity. Renal cortical thickness is normal. No calculi or focal parenchymal lesions. No hydronephrosis. US/US renal BI IMPRESSION: 1. A 1.0 cm mid right renal mildly complex, peripherally calcified cyst is seen, as detailed. If relevant to patient management, this can be more fully evaluated with dedicated CT or MRI (renal mass protocol). 2. The left kidney is mildly atrophic.
== END 2023-11-14 11:23 | disposition home or self-care (01) ==
LOC: HO.US 11:22
PROVIDERS: PCP Nurse Practitioner Family; Visit Provider Urology
DX: R33.9 Retention of urine, unspecified (principal); N40.0 Benign prostatic hyperplasia without lower urinary tract symptoms
CPT/HCPCS: 76775

== ENCOUNTER 2023-11-19 10:54 | Outpatient (REF) | payer MEDICARE, MEDICAID, SELFPAY ==
[2023-11-19 14:16] LABS: MANUAL DIFF FLAG NO
[2023-11-19 14:29] LABS: Appearance Urine Clear; Basophils Percent Auto 0.8 % (0-2); Color Urine Yellow; Eosinophils Absolute Auto 0.3 X10*3/uL (0.0-0.4); Eosinophils Percent Auto 6.8 % (0-4); Glucose Urine UA >=1000 mg/dL (Negative); Hematocrit 45.7 % (42.0-52.0); Hemoglobin 14.2 g/dl (14.0-18.0); Leukocyte Esterase Urine Negative (Negative); Lymphocytes Absolute Auto 1.3 X10*3/uL (1.2-4.9); Lymphocytes Percent Auto 34.4 % (20-40); Mean Corpuscular HGB Conc 31.1 g/dl (31.0-36.0); Mean Corpuscular Hemoglobin 27.2 pg (27.0-33.0); Mean Corpuscular Volume 87.5 fL (80.0-98.0); Mean Platelet Volume 11.7 fL (9.4-12.4); Monocytes Absolute Auto 0.4 X10*3/uL (0.1-1.2); Monocytes Percent Auto 9.6 % (2-11); Neutrophils Absolute Auto 1.8 x10*3/uL (2.0-8.3); Neutrophils Percent Auto 48.4 % (45-73); Nitrite Urine Negative (Negative); Platelet Count 185 X10*3/uL (160-400); Red Blood Count 5.22 X10*6/uL (4.60-5.80); Red Cell Distribution Width 14.7 % (11.0-16.0); Specific Gravity - Urine 1.025 (1.005-1.025); UMIC TRIGGER UACC YES; Urine Blood Negative (Negative); Urine Ketones Negative (Negative); Urine Protein Negative (Neg-Trace); White Blood Count 3.7 X10*3/uL (4.8-10.8)
[2023-11-19 14:38] LABS: Cholesterol 135 mg/dL (<200); HDL Cholesterol 50 mg/dL (>40); LDL Cholesterol Calculated 76 mg/dL (<100); Triglycerides 46 mg/dL (<150)
[2023-11-19 14:40] LABS: Bacteria Urine None Seen (None Seen); Hyaline Casts Urine 0-2 /LPF (0-2); RBC Urine 0-2 /HPF (0-2); Squamous Epithelial Cell Urine 0-2 /HPF (0-2); WBC Urine 0-5 /HPF (0-5)
[2023-11-19 14:54] LABS: TSH reflex Free T4 1.67 uIU/mL (0.32-4.0)
[2023-11-23 18:19] LABS: PSA, Ultra Sensitive 11.51 ng/mL
== END 2023-11-19 10:55 | disposition home or self-care (01) ==
LOC: HO.WFDLDS 10:54
PROVIDERS: Visit Provider Nurse Practitioner Family
DX: Z00.00 Encounter for general adult medical examination without abnormal findings (principal); Z20.2 Contact with and (suspected) exposure to infections with a predominantly sexual mode of transmission; Z12.5 Encounter for screening for malignant neoplasm of prostate
CPT/HCPCS: 36415; 80061; 81001; 84153; 84443; 85025; 85027

== ENCOUNTER 2023-11-26 11:37 | Outpatient (AMB) | payer MEDICARE, MEDICAID, SELFPAY ==
[2023-11-26 11:40] VITALS: BP 122/66; PULSE 59; RESP 13; TEMP 36.4; O2SAT 97; BMI 23.8
--- NOTE | 2023-11-26 11:40 | MHC.PC.OV ---
Vital Signs 11/26/23 11:40 Height 5 ft 5 in Weight 143 lb BMI 23.8 BP 122/66 Blood Pressure Location Lt brachial Position Sitting Respiration 13 Pulse 59 Pulse Source Pulse Oximeter Temp 97.6 F Temp Source Temporal Artery Scan Pulse Oximetry (%) 97 Oxygen Delivery Method Room Air Intake Visit Reasons: 2 mos DM, HTN Inspector Wreath Required: No Accompanied by: Self / Same As Patient Allergies No Known Allergies Allergy (Verified 11/26/23 11:58) Medication List - Last Reconciled 11/26/23 by Sebas Titus CNP acetaminophen ER (Tylenol Arthritis Pain) 650 mg PO Q12H PRN atorvastatin 80 mg PO BEDTIME 30 days ciprofloxacin HCl 500 mg PO BID 3 days clopidogrel 75 mg PO DAILY 90 days cyclobenzaprine 10 mg PO BID PRN empagliflozin (Jardiance) 10 mg PO DAILY finasteride (Proscar) 5 mg PO DAILY 90 days gabapentin 300 mg PO DAILY 30 days losartan 50 mg PO DAILY 30 days metformin 500 mg PO BID 30 days metoprolol tartrate 75 mg PO BID 30 days mirtazapine 7.5 mg PO BEDTIME 90 days sodium chloride 1,000 mg PO DAILY tamsulosin (Flomax) 0.4 mg PO BID Tobacco use date assessed: 09/17/23 Fall risk assessment: No Falls in past year Last assessed Fall Risk: 11/26/23 Dental Screening Dental Screen Date: 11/26/23 Did you have a dental visit in the last 12 months?: No Did you have a dental problem in the last 6 months where you did not have access to dental care?: No Was dental information given to patient?: Yes HPI HPI Comments History of Present Illness Details 78-year-old male presents for an extended physical exam He has past medical history significant for diabetes, hypertension, hyperlipidemia, benign prostatic hyperplasia, and depression He admits to taking his medications as prescribed without adverse reactions He offers no complaints and denies acute symptoms at this time He is followed by [facility] urology He notes that his last eye exam was in August, at [facility]. He was told he had cataract of the right eye He notes that he has never had a colonoscopy He states that he was never vaccinated for shingles, PNA, or influenza; he wishes to get vaccinated for these PFSH Medical History No pertinent past medical history Surgical History H/O heart surgery Family History Father Stroke Mother No problems noted. Sister Blind Social History Housing: Apartment Patient Tobacco Use Status: Never used Tobacco e-Cigarette/Vaping Use: Never Used Second Hand Smoke Exposure: No service: Yes Current occupational status: employed Current occupation: [employer] Cognitive needs: No Hearing needs: No Vision needs: No Questionnaire PHQ-9 Over the last 2 weeks, how often have you been bothered by any of the following problems? 1. Little interest or pleasure in doing things: not at all 2. Feeling down, depressed, or hopeless: not at all 3. Trouble falling or staying asleep, or sleeping too much: not at all 4. Feeling tired or having little energy: not at all 5. Poor appetite or overeating: not at all 6. Feeling bad about yourself - or that you are a failure or have let yourself or your family down: not at all 7. Trouble concentrating on things, such as reading the newspaper or watching television: not at all 8. Moving or speaking so slowly that other people could have noticed. Or the opposite - being so fidgety or restless that you have been moving around a lot more than usual: not at all 9. Thoughts that you would be better off or of hurting yourself in some way: not at all Total score: 0 Depression Screening Interpretation: Negative Depression Screening Done: Yes 42845 - PHQ-9 Billing: Yes Source: Developed by Drs. Reji Ford, Farhana Lawson, Jonnie Gomez and colleagues, with an educational jozef from [employer]. Thrive Questionnaire Date Thrive assessed: 11/26/23 I am a: Patient What is your living situation today?: I have a steady place to live Within the past 12 months, did the food you bought not last and you didn't have the money to get more?: Sometimes True Within the past 12 months, did you worry whether your food would run out before you got money to buy more?: Sometimes True Do you have trouble paying for medicines?: No Do you have trouble getting transportation to medical appointments?: Yes Do you have trouble paying your heating and electricity bill?: No Do you have trouble taking care of your child, family member or friend?: No Do you have trouble with day-to-day activities such as bathing, preparing meals, shopping, managing finances, etc.?: No Are you currently unemployed and looking for a job?: No Are you interested in more education?: No Please select the resources that you would like help with: Transportation Currently or been in a relationship where the following occur: no concerns reported THRIVE Score: 3 AUDIT C Alcohol Use Questionnaire (AUDIT-C) 1. How often do you have a drink containing alcohol?: Never 3. How often do you have six or more drinks on one occasion?: Never Total Score: 0 OLIVER-7 AMB Questionnaire OLIVER-7 Date OLIVER - 7 assessed: 11/26/23 Feeling nervous, anxious, or on edge: 0 = Not at all Not being able to stop or control worryin = Not at all Worrying too much about different things: 0 = Not at all Trouble relaxin = Not at all Being so restless that it is hard to sit still: 0 = Not at all Becoming easily annoyed or irritable: 0 = Not at all Feeling afraid as if something awful might happen: 0 = Not at all Total OLIVER-7 score (0-4 normal; 5-9 mild; 10-14 moderate; 15-21 severe): 0 Source: Developed by Drs. Reji Ford, Farhana Lawson, Jonnie Gomez and colleagues, with an educational jozef from [employer]. OLIVER-7 Assessment Billing OLIVER-7 Assessment Tool: OLIVER-7 Assessment 61104 Review of Systems Const Details: Denies chills, Denies fatigue, Denies fever(s), Denies headache(s) and Denies weakness HEENT Denies change in vision, Denies dizziness, Denies headache(s), Denies hearing loss, Denies nasal congestion, Denies sinus pain, Denies sinus pressure and Denies sore throat Card Denies chest pain, Denies lightheadedness, Denies dyspnea and Denies other (palpitations) Resp Denies cough, Denies dyspnea and Denies wheezing GI Denies abdominal pain, Denies melena, Denies hematochezia, Denies change in bowel habits, Denies dyspepsia and Denies nausea Denies hematuria and Denies dysuria Musc Denies abnormal gait, Denies myalgias, Denies arthralgias, Denies numbness and Denies tingling Skin/Breast Denies rash, Denies unusual bruising and Denies wounds Neuro Denies abnormal gait, Denies dizziness, Denies headache(s), Denies memory loss, Denies numbness, Denies Sensory deficit (Neuro), Denies tingling and Denies weakness Psych Denies anxiety, Denies depression and Denies memory loss Endo Denies cold intolerance, Denies fatigue, Denies heat intolerance, Denies polydipsia and Denies polyuria Oziel/Lymph Denies easy bleeding and Denies easy bruising Aller/Immun Denies wheezing Physical exam (Primary Care) Vital Signs: Last Vital Signs Temp 97.6 F 11/26/23 11:40 Pulse 59 11/26/23 11:40 Resp 13 11/26/23 11:40 BP 122/66 11/26/23 11:40 Pulse Ox 97 11/26/23 11:40 Oxygen Delivery Method Room Air 11/26/23 11:40 BMI result Body Mass Index 23.8 Tobacco/Smoking Status: Tobacco use Status Tobacco use date assessed 09/17/23 11/26/23 11:47 Patient Tobacco Use Status Never used Tobacco 11/26/23 11:47 e-Cigarette/Vaping Use Never Used 11/26/23 11:47 Depression Screening Interpretation: Negative Thrive Assessment: Date of Thrive Assessment Date Thrive assessed 08/10/22 11/26/23 11:47 Currently or been in a relationship where the following occur: no concerns reported Const Other: General: no acute distress, well developed, alert and awake Nutritional Appearance: well nourished Orientation/consciousness: patient oriented x3 HENMT Head: Yes normocephalic and Yes atraumatic Ears: hearing grossly normal bilaterally and TM's normal bilaterally General nose exam: Normal external nose present and Normal nares present Mouth: Normal oral and palatal mucosa present and moist mucous membranes Teeth and gingiva: dentition normal Throat: Yes oropharynx normal Eyes Pupils: Equal, round and reactive pupils present and Pupil accommodation reflex normal EOM: EOMs intact bilaterally Neck Neck: Yes normal visual inspection, Yes no lymphadenopathy and Yes trachea midline Thyroid: Thyroid normal Carotids: no bruits Lymphatic: no lymphadenopathy noted Chest Chest palpation & inspection: normal inspection of the chest Resp Effort & Inspection: normal respiratory effort Auscultation: clear to auscultation bilaterally Cardio Rate: regular rate Rhythm: regular rhythm Heart sounds: S1 normal heart sound present, S2 normal heart sound present, no gallops, no murmurs and no rubs Bruits: no abdominal aortic bruits and no carotid bruits GI Palpation (GI): No Abdominal aortic bruit present, Soft to palpation, nontender, No hepatosplenomegaly present and No Rebound tenderness present Auscultation: normal bowel sounds General: Yes no CVA tenderness Back/Spine/Pelvis Back: no CVA tenderness Cervical Spine: cervical ROM normal and No Cervical spine tenderness Thoracic/Lumbar Spine: thoraco-lumbar ROM normal, No pain with thoraco-lumbar ROM, No thoracic spinal tenderness and No lumbar spinal tenderness Skin General: warm and dry. Normal skin color. Normal skin turgor Lesions: no lesions Rashes: no rashes Trauma: no lacerations or abrasions Wounds: no wounds Nails: normal Neuro General: patient oriented x3, gait normal and CN's II-XI intact bilaterally Cranial nerves: Yes Equal, round and reactive pupils present Cognition (Neuro): normal cognition Gait exam (Neuro): Normal gait present Motor exam (neuro): 5/5 motor strength present throughout Sensory Exam: No Sensory deficit (Neuro) Deep tendon reflexes (DTR's): Right patellar reflex intensity grade: 2+ and Left patellar reflex intensity grade: 2+ Extrem General: Yes normal to inspection, No edema and No calf tenderness Psych Appearance: grossly normal Affect: normal affect Attitude: cooperative Thought process: Normal thought process present Assessment and Plan Assessment & Plan (1) Normal physical examination, routine: Code(s): Z00.00 - Encounter for general adult medical examination without abnormal findings Plan: No significant physical restrictions or limitations noted Continue current treatment regimen Healthy diet and routine exercise encouraged Will order CMP and urinalysis Follow-up in 1 month for hypertension, diabetes, and review recent blood work Return sooner with symptoms or concerns Verbalized understanding and agreed with treatment plan (2) Type 2 diabetes mellitus: Code(s): E11.9 - Type 2 diabetes mellitus without complications Qualifiers: Diabetes mellitus complication status: with neurologic complications Plan: Controlled Recent A1c 6.4% Continue current treatment Will recheck A1c in 1 month Verbalized understanding and agreed with the plan (3) Hypertension: Code(s): I10 - Essential (primary) hypertension Qualifiers: Hypertension type: primary hypertension Qualified Code(s): I10 - Essential (primary) hypertension Plan: Blood pressure is 122/66, within goal of less than 130/80 Continue current treatment regimen Low-sodium diet encouraged Follow-up in 1 month Verbalized understanding and agreed with treatment plan (4) BPH (benign prostatic hyperplasia): Code(s): N40.0 - Benign prostatic hyperplasia without lower urinary tract symptoms Plan: Followed by [facility] urology (5) Colon cancer screening: Code(s): Z12.11 - Encounter for screening for malignant neoplasm of colon Plan: He has never had a colonoscopy Referred to [facility] gastroenterology for colonoscopy (6) Vaccine counseling: Code(s): Z71.85 - Encounter for immunization safety counseling Plan: He has never vaccinated for shingles, PNA, and influenza Instructed on the importance of vaccination and encouraged to request these vaccines from the local pharmacy Verbalized understanding and agreed with the plan (7) Laboratory tests ordered as part of a complete physical exam (CPE): Code(s): Z00.00 - Encounter for general adult medical examination without abnormal findings Plan: Fasting labs ordered as part of a complete physical exam. Advised to fast for at least 10 hours before getting labs drawn. May drink water Verbalized understanding and agreed with treatment plan. Orders: Orders Comprehensive Mona. Panel Fast Today Z00.00 - Encounter for general adult medical examination without abnormal findings UA CC w/rflx Micro + Cult Today Z00.00 - Encounter for general adult medical examination without abnormal findings Referrals Gastroenterology Referral Z12.11 - Encounter for screening for malignant neoplasm of colon Coding Level of Care Code Est Pt Prev Care >65y(73879) Diagnoses Normal physical examination, routine Z00.00 Type 2 diabetes mellitus E11.9 Diabetes mellitus complication status: with neurologic complications Primary hypertension I10 Hypertension type: primary hypertension BPH (benign prostatic hyperplasia) N40.0 Colon cancer screening Z12.11 Vaccine counseling Z71.85 Laboratory tests ordered as part of a complete physical exam (CPE) Z00.00 Additional Codes OLIVER-7 Assessment Billing - OLIVER-7 Assessment Tool: OLIVER-7 Assessment [id number] ([id number])
== END 2023-11-26 12:28 | disposition home or self-care (01) ==
PROVIDERS: PCP Nurse Practitioner Family; Visit Provider Nurse Practitioner Family
DX: Z00.00 Encounter for general adult medical examination without abnormal findings (principal); E11.9 Type 2 diabetes mellitus without complications; I10 Essential (primary) hypertension; N40.0 Benign prostatic hyperplasia without lower urinary tract symptoms; Z12.11 Encounter for screening for malignant neoplasm of colon; Z71.85 Encounter for immunization safety counseling
CPT/HCPCS: 99397

== ENCOUNTER 2023-12-05 13:52 | Outpatient (AMB) | payer MEDICARE, MEDICAID, SELFPAY ==
--- NOTE | 2023-12-05 13:54 | A.OFFVIS_ITS ---
Intake Intake Visit Reasons: 5w/US Intake Note: Patient presents today for a follow-up Elevated PSA & US Results: Meds: Tamsulosin Allergies to Antibiotic: No Known Allergies Blood Thinner: None Waxing Machine Operator Required: No Digital Sales Assistant: Digital Sales Assistant Present Accompanied by: Self / Same As Patient Allergies No Known Allergies Allergy (Verified 11/26/23 11:58) Medication List - Last Reconciled 12/05/23 by Mally Boss MD acetaminophen ER (Tylenol Arthritis Pain) 650 mg PO Q12H PRN atorvastatin 80 mg PO BEDTIME 30 days ciprofloxacin HCl 500 mg PO BID 3 days clopidogrel 75 mg PO DAILY 90 days cyclobenzaprine 10 mg PO BID PRN empagliflozin (Jardiance) 10 mg PO DAILY finasteride (Proscar) 5 mg PO DAILY 90 days gabapentin 300 mg PO DAILY 30 days losartan 50 mg PO DAILY 30 days metformin 500 mg PO BID 30 days metoprolol tartrate 75 mg PO BID 30 days mirabegron ER (Myrbetriq) 25 mg PO DAILY mirtazapine 7.5 mg PO BEDTIME 90 days sodium chloride 1,000 mg PO DAILY tamsulosin (Flomax) 0.4 mg PO BID HPI HPI Comments History of Present Illness Details 12/05/2023--Kalia is a 78-year-old male he was initially evaluated on 10/05/2023 for urinary retention. Redmond was removed and cystoscopy was done at that time. Cystoscopy findings: Trilobar Prostate enlargement and bladder wall thickening. Proscar was started. He was sent for renal and bladder ultrasound. He had renal ultrasound completed but had an incontinent episode and bladder ultrasound was not done at the time of the imaging evaluation. I have discussed renal ultrasound results. Mild left renal atrophy. Right kid paty a 1.0 cm mildly complex cyst. Will monitor. Today on exam bladder scan PVR is 0 mL. Plan is to continue tamsulosin and Proscar. Will monitor kidneys. He complains that he has urinary urgency every hour or whenever he drinks something he has to run to the bathroom. I will trial Myrbetriq 25 mg daily. Urinalysis: Proteinuria present. Comorbidity diabetes. Plan referral to Nephrology 40 minutes spent in review of records pe rtaining to this visit and including [id number] discussion with the patient and documentation of this visit. Review of chart: 10/05/2023-- Kalia is a 78-year-old male with history of BPH, diabetes. He presents with a Redmond catheter. He states he went into urinary retention in August and was seen at the [facility] ED and a Redmond catheter was placed. The patient is on tamsulosin. He states he has seen blood in the urine. I have discussed voiding trial as well as cystoscopy today. Cystoscopy findings: Trilobar enlargement of the prostate, bladder wall thickening. The patient voided after the cystoscopy. Will continue tamsulosin increased b.i.d. and start Proscar 5 mg daily 12/05/2023--PLAN: Continue tamsulosin b.i.d., Proscar 5 mg daily. Urinary urgency. Start Myrbetriq 25 mg daily. Monitor PVR Right kidney 1 cm mildly complex cyst. Will monitor. MRI abdomen renal mass protocol in 4-6 months. [facility] Medical History No pertinent past medical history Surgical History H/O heart surgery Family History Father Stroke Mother No problems noted. Sister Blind Social History Housing: Apartment Patient Tobacco Use Status: Never used Tobacco e-Cigarette/Vaping Use: Never Used Second Hand Smoke Exposure: No service: Yes Current occupational status: employed Current occupation: [employer] Cognitive needs: No Hearing needs: No Vision needs: No Review of Systems Const All systems reviewed & are unremarkable except as noted in HPI and below Reports no additional complaints Eyes Reports no additional complaints ENT Reports no additional complaints Card Reports no additional complaints Resp Reports no additional complaints GI Reports no additional complaints Reports as per HPI Musc Reports no additional complaints Skin/Breast Reports system reviewed and no additional complaints, except as documented Neuro Reports no additional complaints Psych Reports no additional complaints Endo Reports no additional complaints Oziel/Lymph Reports no additional complaints Aller/Immun Reports no additional complaints Office Procedures Post Void Residual Post Residual Void Post Void Residual (PVR): 0 [id number] Void Residual by ultrasound Results AMB Urinalysis, Automated UA Leukoctes 0 Maria Del Rosario/uL Last Edit by REFUGIO Winkler on 12/05/23 14:11 UA Nitrite Negative Last Edit by Staci Key Rowan on 12/05/23 14:11 UA Urobilinogen 0.2 mg/dL Last Edit by Staci Key Rowan on 12/05/23 14:1 1 UA Protein 30 mg/dL Last Edit by Staci Key Rowan on 12/05/23 14:11 1+ Staci Key 12/05/23 14:11 UA pH 5.5 Last Edit by Staci Key Rowan on 12/05/23 14:11 UA Blood 10 Herb/uL Last Edit by Staci Key Rowan on 12/05/23 14:11 UA Specific [place] 1.015 Last Edit by Staci Key Rowan on 12/05/23 14: 11 UA Ketone Negative Last Edit by Staci Key Rowan on 12/05/23 14:11 UA Bilirubin 0 mg/dL Last Edit by Staci Key Rowan on 12/05/23 14:11 UA Glucose 1000 mg/dL Last Edit by Staci Key Rowan on 12/05/23 14:11 3+ Staci Key 12/05/23 14:11 Results Reviewed Results Reviewed: Date of Service: 11/14/23 US RETROPERITONEAL LIMITED (RENAL ONLY) CLINICAL INFORMATION: Retention of urine, unspecified. COMPARISON: None available. TECHNIQUE: Real-time imaging of the kidneys. FINDINGS: RIGHT KIDNEY: 10.4 x 5.1 x 6.8 cm (SAG x AP x TRV). The kidney is normal in size, contour, and echogenicity. Renal cortical thickness is normal. No renal calculi or hydronephrosis. At the interpolar aspect, a 1.0 x 0.9 x 0.9 cm peripherally calcified, shadowing cyst is seen. LEFT KIDNEY: 7.8 x 5.7 x 3.9 cm (SAG x AP x TRV). The kidney is normal in contour, and echogenicity. Renal cortical thickness is normal. No calculi or focal parenchymal lesions. No hydronephrosis. IMPRESSION: 1. A 1.0 cm mid right renal mildly complex, peripherally calcified cyst is seen, as detailed. If relevant to patient management, this can be more fully evaluated with dedicated CT or MRI (renal mass protocol). 2. The left kidney is mildly atrophic. Assessment & Plan Assessment & Plan (1) Urinary retention: Code(s): R33.9 - Retention of urine, unspecified (2) BPH (benign prostatic hyperplasia): Code(s): N40.0 - Benign prostatic hyperplasia without lower urinary tract symptoms (3) Complex renal cyst: Code(s): N28.1 - Cyst of kidney, acquired Plan Continue tamsulosin b.i.d., Proscar 5 mg daily. Urinary urgency. Start Myrbetriq 25 mg daily. Monitor PVR Right kidney 1 cm mildly complex cyst. Will monitor. MRI abdomen renal mass protocol in 4-6 months. Orders: Orders AMB Urinalysis Automated Today Z13.9 - Encounter for screening, unspecified AMB Post Void Residual by ultrasound Today N39.8 - Other specified disorders of urinary system MR abdomen wo/w con 6 Months N28.1 - Cyst of kidney, acquired Referrals Nephrology Referral R80.9 - Proteinuria, unspecified Medications: New mirabegron ER (Myrbetriq) 25 mg PO DAILY 30 tabs 5RF Patient Instructions: The patient had an opportunity to ask questions regarding treatment plan. All questions were answered. Imaging, Laboratory studies and physical exam results were discussed and reviewed in detail. No major barriers to understanding were identified. The patient expressed understanding and agreement with the above treatment plan. The patient is aware they should contact our office by phone for worsening of their current condition or the appearance of new symptoms. Compliance is encouraged with any medications and followup testing that is ordered. It is a privilege to be allowed the opportunity to participate in the urologic care of your patient. If you have any questions or concerns regarding treatment for the above conditions please do not hesitate to contact me. The office telephone contact is [phone]. This note is constructed in part using voice recognition software. While every effort has been made to ensure accuracy import and export clerk errors may have been included. Yours sincerely, Mally Boss MD Coding Level of Care Code Est Pt Level 4 (80822) Diagnoses Urinary retention R33.9 BPH (benign prostatic hyperplasia) N40.0 Complex renal cyst N28.1 CPT Codes Post Residual Void - PVR CPT Code: 37388-Yuug Void Residual by ultrasound ([id number])
== END 2023-12-05 14:30 | disposition home or self-care (01) ==
LOC: HO.HUSH 13:53
PROVIDERS: PCP Nurse Practitioner Family; Visit Provider Urology
DX: R33.9 Retention of urine, unspecified (principal); N40.0 Benign prostatic hyperplasia without lower urinary tract symptoms; N28.1 Cyst of kidney, acquired; Z13.9 Encounter for screening, unspecified
CPT/HCPCS: 99214

== ENCOUNTER → 2023-12-05 13:52 | Outpatient (BNVA) | payer MEDICARE, MEDICAID, SELFPAY | PROVIDERS: PCP Nurse Practitioner Family; Visit Provider Urology | DX: N28.1 Cyst of kidney, acquired (principal); N40.0 Benign prostatic hyperplasia without lower urinary tract symptoms; R33.9 Retention of urine, unspecified; R80.9 Proteinuria, unspecified; E11.9 Type 2 diabetes mellitus without complications; Z79.899 Other long term (current) drug therapy | CPT/HCPCS: 51798; 81003; 99212 ==

== ENCOUNTER 2023-12-31 14:43 | Outpatient (AMB) | payer OTHER, SELFPAY ==
[2023-12-31 14:51] VITALS: BP 106/64; PULSE 72; RESP 14; TEMP 36.6; O2SAT 97; BMI 24.1
--- NOTE | 2023-12-31 14:51 | MHC.PC.OV ---
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 Accompanied by: Self / Same As Patient Allergies No Known Allergies Allergy (Verified 12/31/23 15:07) Medication List - Last Reconciled 12/31/23 by Sebas Titus CNP acetaminophen ER (Tylenol Arthritis Pain) 650 mg PO Q12H PRN atorvastatin 80 mg PO BEDTIME 30 days clopidogrel 75 mg PO DAILY 90 days cyclobenzaprine 10 mg PO BID PRN empagliflozin (Jardiance) 10 mg PO DAILY finasteride (Proscar) 5 mg PO DAILY 90 days gabapentin 300 mg PO DAILY 30 days losartan 50 mg PO DAILY 30 days metformin 500 mg PO BID 30 days metoprolol tartrate 75 mg PO BID 30 days mirabegron ER (Myrbetriq) 25 mg PO DAILY mirtazapine 7.5 mg PO BEDTIME 90 days sodium chloride 1,000 mg PO DAILY tamsulosin (Flomax) 0.4 mg PO BID Tobacco use date assessed: 09/17/23 Fall risk assessment: No Falls in past year Last assessed Fall Risk: 12/31/23 Dental Screening Dental Screen Date: 11/26/23 HPI HPI Comments History of Present Illness Details 78-year-old male presents for hypertension, diabetes, and recent labs review follow-up He notes that he forgot to get CMP and urinalysis labs done He admits to taking his medications as prescribed without adverse reactions He offers no complaints and denies acute symptoms at this time [facility] Medical History No pertinent past medical history Surgical History H/O heart surgery Family History Father Stroke Mother No problems noted. Sister Blind Social History (Updated 12/31/23 @ 15:01 by DOUG Chaidez) Household Members: None Housing: Apartment Patient Tobacco Use Status: Never used Tobacco e-Cigarette/Vaping Use: Never Used Second Hand Smoke Exposure: No service: Yes Current occupational status: employed Current occupation: [employer] Cognitive needs: No Hearing needs: No Vision needs: No Questionnaire Thrive Questionnaire Date Thrive assessed: 11/26/23 OLIVER-7 AMB Questionnaire OLIVER-7 Date OLIVER - 7 assessed: 11/26/23 Source: Developed by Drs. Reji Ford, Farhana Lawson, Jonnie Gomez and colleagues, with an educational jozef from [employer]. Review of Systems Const Details: Const Denies chills, Denies fatigue, Denies fever(s), Denies headache(s) and Denies weakness ENT Denies dizziness and Denies headache(s) Card Denies chest pain, Denies lightheadedness, Denies dyspnea and Denies other (Palpitations) Resp Denies cough, Denies dyspnea, Denies wheezing and Denies other ( shortness of breath) GI Denies abdominal pain, Denies melena, Denies hematochezia, Denies change in bowel habits, Denies dyspepsia and Denies nausea Denies hematuria and Denies dysuria Musc Denies abnormal gait, Denies myalgias, Denies arthralgias, Denies numbness and Denies tingling Skin/Breast Denies rash, Denies unusual bruising and Denies wounds Neuro Denies abnormal gait, Denies dizziness, Denies headache(s), Denies memory loss, Denies numbness, Denies Sensory deficit (Neuro), Denies tingling and Denies weakness Psych Denies anxiety, Denies depression, Denies memory loss Endo Denies cold intolerance, Denies fatigue, Denies heat intolerance, Denies polydipsia and Denies polyuria Aller/Immun Denies wheezing Physical exam (Primary Care) Vital Signs: Last Vital Signs Temp 97.8 F 12/31/23 14:51 Pulse 72 12/31/23 14:51 Resp 14 12/31/23 14:51 BP 106/64 12/31/23 14:51 Pulse Ox 97 12/31/23 14:51 Oxygen Delivery Method Room Air 12/31/23 14:51 BMI result Body Mass Index 24.1 Tobacco/Smoking Status: Tobacco use Status Tobacco use date assessed 09/17/23 12/31/23 14:58 Patient Tobacco Use Status Never used Tobacco 12/31/23 15:01 e-Cigarette/Vaping Use Never Used 12/31/23 15:01 Thrive Assessment: Date of Thrive Assessment Date Thrive assessed 11/26/23 12/31/23 14:58 Const Other: General: no acute distress and well developed Nutritional Appearance: well nourished Orientation/consciousness: patient oriented x3 HENMT Head: Yes normocephalic and Yes atraumatic Eyes General: appearance normal, both eyes and all related structures Pupils: Equal, round and reactive pupils present EOM: EOMs intact bilaterally Resp Effort & Inspection: normal respiratory effort Auscultation: clear to auscultation bilaterally Cardio Rate: regular rate Rhythm: regular rhythm Heart sounds: S1 normal heart sound present, S2 normal heart sound present, no gallops, no murmurs and no rubs GI Palpation (GI): No Abdominal aortic bruit present, Soft to palpation, nontender, No hepatosplenomegaly present and No Rebound tenderness present Auscultation: normal bowel sounds General: Yes no CVA tenderness Back/Spine/Pelvis Back: no CVA tenderness Cervical Spine: cervical ROM normal and No Cervical spine tenderness Thoracic/Lumbar Spine: thoraco-lumbar ROM normal, No pain with thoraco-lumbar ROM, No thoracic spinal tenderness and No lumbar spinal tenderness Extrem General: Yes normal to inspection, No edema and No calf tenderness Skin General: warm and dry. Normal skin color. Normal skin turgor Neuro General: patient oriented x3, gait normal and no focal neuro deficit Cranial nerves: Yes Equal, round and reactive pupils present Cognition (Neuro): normal cognition Gait exam (Neuro): Normal gait present Sensory Exam: No Sensory deficit (Neuro) Psych Appearance: grossly normal Affect: normal affect Attitude: cooperative Thought process: Normal thought process present Results AMB Hemoglobin A1c AMB Hemoglobin A1c 6.7 % Last Edit by DOUG Chaidez on 12/31/23 15:04 Results Reviewed Results Reviewed: Laboratory Last Values Hgb A1c (Clinic) 6.7 % (4.0-6.0) H 12/31/23 15:03 Assessment and Plan Assessment & Plan (1) Type 2 diabetes mellitus: Code(s): E11.9 - Type 2 diabetes mellitus without complications Qualifiers: Diabetes mellitus complication status: with neurologic complications Plan: His A1c today 6.7%, within goal of less than 7.0%. Previous A1c was 6.4% Continue current treatment regimen ADA diet and routine exercise encouraged Follow-up in 3 months or return sooner with symptoms or concerns Verbalized understanding and agreed with treatment plan (2) Hypertension: Code(s): I10 - Essential (primary) hypertension Qualifiers: Hypertension type: primary hypertension Qualified Code(s): I10 - Essential (primary) hypertension Plan: Blood pressure is 106/64, within goal of less than 130/80 Continue current treatment regimen Low-sodium diet encouraged Follow-up in 6 months Verbalized understanding and agreed with the treatment plan Orders: Orders AMB Hemoglobin A1c Today E11.9 - Type 2 diabetes mellitus without complications Lipid Panel 3 Months E78.5 - Hyperlipidemia, unspecified Coding Level of Care Code Est Pt Level 3 (75109) Diagnoses Type 2 diabetes mellitus E11.9 Diabetes mellitus complication status: with neurologic complications Primary hypertension I10 Hypertension type: primary hypertension
== END 2023-12-31 15:19 | disposition home or self-care (01) ==
LOC: HO.HMGFM 14:43
PROVIDERS: PCP Nurse Practitioner Family; Visit Provider Nurse Practitioner Family
DX: E11.9 Type 2 diabetes mellitus without complications (principal); I10 Essential (primary) hypertension
CPT/HCPCS: 83036; 99213

== ENCOUNTER 2024-04-07 12:49 | Outpatient (AMB) | payer OTHER, SELFPAY ==
--- NOTE | 2024-04-07 13:06 | A.OFFPC_ITS ---
Vital Signs 04/07/24 13:13 Height 5 ft 5 in Weight 142 lb 4 oz BMI 23.7 BP 124/68 Blood Pressure Location Rt brachial Position Sitting Respiration 16 Pulse 71 Pulse Source Pulse Oximeter Temp 97.8 F Temp Source Oral Pulse Oximetry (%) 98 Oxygen Delivery Method Room Air Intake Visit Reasons: 3 mos HTN, DM, HLD Intake Note: patient here to 3 months follow up on HTN,DM,HDL. patient is c/o back spasm radiating to neck. 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 Allergies No Known Allergies Allergy (Verified 04/07/24 13:21) Medication List - Last Reconciled 04/07/24 by Sebas Titus CNP acetaminophen ER (Tylenol Arthritis Pain) 650 mg PO Q12H PRN atorvastatin 80 mg PO BEDTIME 30 days clopidogrel 75 mg PO DAILY 90 days cyclobenzaprine 10 mg PO BID PRN empagliflozin (Jardiance) 10 mg PO DAILY finasteride (Proscar) 5 mg PO DAILY 90 days gabapentin 300 mg PO DAILY 30 days losartan 50 mg PO DAILY 30 days metformin 500 mg PO BID 30 days metoprolol tartrate 75 mg PO BID 30 days mirabegron ER (Myrbetriq) 25 mg PO DAILY mirtazapine 7.5 mg PO BEDTIME 90 days sodium chloride 1,000 mg PO DAILY tamsulosin (Flomax) 0.4 mg PO BID Tobacco use date assessed: 04/07/24 Fall risk assessment: No Falls in past year Dental Screening Dental Screen Date: 04/07/24 Did you have a dental visit in the last 12 months?: Yes Did you have a dental problem in the last 6 months where you did not have access to dental care?: No Was dental information given to patient?: Patient has dentist HPI HPI Comments History of Present Illness Details 78-year-old male presents for hypertensi on, diabetes, and hyperlipidemia follow-up He admits to taking his medications as prescribed without adverse reactions. There are some inconsistencies with his reported medications and how he takes them. He notes that cyclobenzaprine is the only medication he currently takes twice daily He did not get CMP and lipid panel blood work done as planned before this visit He complains of intermittent spasms to the middle of his back with certain movements, radiating to his neck. 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 Tylenol and flexor have not provide relief. He notes that the back pain started after he slipped on the ice (outside) and fell, landed on his back, at this workplace in 2018. He had an xray and 2 courses of PT without improvement. He denies recent fall, injury, or trauma. 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 According to the pharmacist, the following medications were last picked up between February and March: Losartan 50 mg daily Flomax 0.4 mg twice daily Myrbetriq 25 mg daily Finasteride 5 mg daily Jardiance 10 mg daily Atorvastatin 80 mg daily PFSH Medical History No pertinent past medical history Surgical History H/O heart surgery Family History Father Stroke Mother No problems noted. 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 1. Little interest or pleasure in doing things: not at all 2. Feeling down, depressed, or hopeless: not at all 3. Trouble falling or staying asleep, or sleeping too much: not at all 4. Feeling tired or having little energy: not at all 5. Poor appetite or overeating: not at all 6. Feeling bad about yourself - or that you are a failure or have let yourself or your family down: not at all 7. Trouble concentrating on things, such as reading the newspaper or watching television: not at all 8. Moving or speaking so slowly that other people could have noticed. Or the opposite - being so fidgety or restless that you have been moving around a lot more than usual: not at all 9. Thoughts that you would be better off or of hurting yourself in some way: not at all Total score: 0 69220 - PHQ-9 Billing: Yes Source: Developed by Drs. Reji Ford, Jonnie Mckenzie and colleagues, with an educational jozef from [employer]. Thrive Questionnaire Date Thrive assessed: 11/26/23 AUDIT C Alcohol Use Questionnaire (AUDIT-C) 1. How often do you have a drink containing alcohol?: Never Total Score: 0 Score Reviewed/Action Taken: No OLIVER-7 AMB Questionnaire OLIVER-7 Date OLIVER - 7 assessed: 11/26/23 Source: Developed by Drs. Reji Ford, Jonnie Mckenzie and colleagues, with an educational jozef from [employer]. Review of Systems Const Details: Const Denies chills, Denies fatigue, Denies fever(s), Denies headache(s) and Denies weakness ENT Denies dizziness and Denies headache(s) Card Denies chest pain, Denies lightheadedness, Denies dyspnea and Denies other (Palpitations) Resp Denies cough, Denies dyspnea, Denies wheezing and Denies other ( shortness of breath) GI Denies abdominal pain, Denies melena, Denies hematochezia, Denies change in bowel habits, Denies dyspepsia and Denies nausea Denies hematuria and Denies dysuria Musc Denies abnormal gait, Denies myalgias, Denies arthralgias, Denies numbness and Denies tingling Skin/Breast Denies rash, Denies unusual bruising and Denies wounds Neuro Denies abnormal gait, Denies dizziness, Denies headache(s), Denies memory loss, Denies numbness, Denies Sensory deficit (Neuro), Denies tingling and Denies weakness Psych Denies anxiety, Denies depression, Denies memory loss Endo Denies cold intolerance, Denies fatigue, Denies heat intolerance, Denies polydipsia and Denies polyuria Aller/Immun Denies wheezing Physical exam (Primary Care) Vital Signs: Last Vital Signs Temp 97.8 F 04/07/24 13:13 Pulse 71 04/07/24 13:13 Resp 16 04/07/24 13:13 BP 124/68 04/07/24 13:13 Pulse Ox 98 04/07/24 13:13 Oxygen Delivery Method Room Air 04/07/24 13:13 BMI result Body Mass Index 23.7 Tobacco/Smoking Status: Tobacco use Status Tobacco use date assessed 04/07/24 04/07/24 13:12 Patient Tobacco Use Status Never used Tobacco 04/07/24 13:09 e-Cigarette/Vaping Use Never Used 04/07/24 13:09 PHQ-9: PHQ-9 Score PHQ-9: Total score 0 04/07/24 14:29 Thrive Assessment: Date of Thrive Assessment Date Thrive assessed 11/26/23 04/07/24 13:09 Const Other: General: no acute distress and well developed Nutritional Appearance: well nourished Orientation/consciousness: patient oriented x3 HENMT Head: Yes normocephalic and Yes atraumatic Eyes General: appearance normal, both eyes and all related structures Pupils: Equal, round and reactive pupils present EOM: EOMs intact bilaterally Resp Effort & Inspection: normal respiratory effort Auscultation: clear to auscultation bilaterally Cardio Rate: regular rate Rhythm: regular rhythm Heart sounds: S1 normal heart sound present, S2 normal heart sound present, no gallops, no murmurs and no rubs GI Palpation (GI): No Abdominal aortic bruit present, Soft to palpation, nontender, No hepatosplenomegaly present and No Rebound tenderness present Auscultation: normal bowel sounds General: Yes no CVA tenderness Back/Spine/Pelvis Back: no CVA tenderness Cervical Spine: cervical ROM normal and No Cervical spine tenderness Thoracic/Lumbar Spine: thoraco-lumbar ROM normal, No pain with thoraco-lumbar ROM, No thoracic spinal tenderness and No lumbar spinal tenderness Extrem General: Yes normal to inspection, No edema and No calf tenderness Skin General: warm and dry. Normal skin color. Normal skin turgor Neuro General: patient oriented x3, gait normal and no focal neuro deficit Cranial nerves: Yes Equal, round and reactive pupils present Cognition (Neuro): normal cognition Gait exam (Neuro): Normal gait present Sensory Exam: No Sensory deficit (Neuro) Psych Appearance: grossly normal Affect: normal affect Attitude: cooperative Thought process: Normal thought process present Results AMB Hemoglobin A1c AMB Hemoglobin A1c 6.5 % Last Edit by Jemma Sanabria on 04/07/24 14:19 Results Reviewed Results Reviewed: Laboratory Last Values Hgb A1c (Clinic) 6.5 % (4.0-6.0) H 04/07/24 14:17 Assessment and Plan Assessment & Plan (1) Type 2 diabetes mellitus: Code(s): E11.9 - Type 2 diabetes mellitus without complications Qualifiers: Diabetes mellitus complication status: with neurologic complications Plan: A1c today is 6.5%, within goal of less than 7.0%. Previous A1c was 6.7% Continue to take Jardiance as prescribed ADA diet and routine exercise encouraged Follow-up in 3 months for hypertension, diabetes, and hyperlipidemia or sooner with symptoms or concerns Verbalized understanding and agreed with the treatment plan Medications reconciled and refilled (2) Hypertension: Code(s): I10 - Essential (primary) hypertension Qualifiers: Hypertension type: primary hypertension Qualified Code(s): I10 - Essential (primary) hypertension Plan: BP is 124/68, within goal of less that 140/90 Continue current treatment regimen Low sodium diet encouraged Follow up in 3 months Verbalized understanding and agreed with the plan (3) Hyperlipidemia: Code(s): E78.5 - Hyperlipidemia, unspecified Plan: He did not get lipid panel blood work done as planned Advised to fast for 10-12 hours, may drink water only, and get blood work done before his next visit Verbalized understanding and agreed with the treatment plan (4) Back spasm: Code(s): M62.830 - Muscle spasm of back Plan: Intermittent back spasms radiating to posterior neck, progressively worsened x 3 weeks. Symptoms refractory to Tylenol and cyclobenzaprine No cervical, thoracic, or lumbar spine tenderness No overt injury or trauma Meloxicam 7.5 mg ordered. Advised to take as prescribed and with food. Instructed on the risks, benefits, and potential adverse reactions of the medications Cyclobenzaprine refilled. Take as prescribed May take Tylenol as needed Warm/cool compresses encouraged X-ray of the thoracic and lumbar spine ordered Work note given for 1 week Follow-up with worsening or new symptoms Verbalized understanding and agreed with the treatment plan Orders: Orders XR thoracic spine 2V 04/07/24 M62.830 - Muscle spasm of back XR lumbar spine 2-3V 04/07/24 M62.830 - Muscle spasm of back AMB Hemoglobin A1c 04/07/24 E11.9 - Type 2 diabetes mellitus without complications Medications: New meloxicam 7.5 mg PO DAILY 14 days 14 tabs 0RF Refilled acetaminophen ER (Tylenol Arthritis Pain) 650 mg PO Q12H PRN 30 tabs 2RF pain cyclobenzaprine 10 mg PO BID PRN 60 tabs 0RF muscle spasm Discontinued metoprolol tartrate Discontinued Reason: Patient no longer taking 75 mg PO BID 30 days 60 tabs 3RF mirtazapine Discontinued Reason: Patient no longer taking 7.5 mg PO BEDTIME 90 days 90 tabs 3RF metformin Discontinued Reason: Patient no longer taking 500 mg PO BID 30 days 60 tabs 2RF Coding Level of Care Code Est Pt Level 4 (32817) Complex EM visit Add On [id number] Diagnoses Type 2 diabetes mellitus E11.9 Diabetes mellitus complication status: with neurologic complications Primary hypertension I10 Hypertension type: primary hypertension Hyperlipidemia E78.5 Back spasm M62.830
[2024-04-07 13:13] VITALS: BP 124/68; PULSE 71; RESP 16; TEMP 36.6; O2SAT 98; BMI 23.7
== END 2024-04-07 14:00 | disposition home or self-care (01) ==
PROVIDERS: PCP Nurse Practitioner Family; Visit Provider Nurse Practitioner Family
DX: E11.9 Type 2 diabetes mellitus without complications (principal)
CPT/HCPCS: 83036; 99214; G2211

== ENCOUNTER 2024-04-07 13:09 | Outpatient (REF) | payer OTHER, SELFPAY | END 2024-04-07 13:10 | disposition home or self-care (01) | LOC: HO.LAB 13:09 | PROVIDERS: Visit Provider Nurse Practitioner Family | DX: Z13.89 Encounter for screening for other disorder (principal) ==

== ENCOUNTER 2024-04-10 11:14 | Outpatient (REF) | payer OTHER, SELFPAY ==
--- NOTE | ~2024-04-10 | XR_ITS ---
EXAMINATION: XR THORACIC SPINE XR LUMBAR SPINE CLINICAL INFORMATION: Muscle spasm of back. COMPARISON: None available. TECHNIQUE: 2 views of the thoracic spine. 3 views of the lumbar spine. FINDINGS: THORACIC SPINE: Median sternotomy wires. Vascular stents involving aorta, bifurcation and branching vessels. Multiple wires overlying the pelvis. Moderate multilevel degenerative changes in the thoracic spine. LUMBAR SPINE: Facet arthritis lower lumbar spine. Multilevel lumbar spondylosis with moderate loss of disc space height at L4-L5. Marked loss of disc space height with subchondral sclerosis at L5-S1. XR/XR lumbar spine 2-3V IMPRESSION: 1. Moderate multilevel degenerative changes in the thoracic spine. 2. Facet arthritis lower lumbar spine. 3. Multilevel lumbar spondylosis with moderate loss of disc space height at L4-L5. Marked loss of disc space height with subchondral sclerosis at L5-S1.
--- NOTE | ~2024-04-10 | XR_ITS ---
EXAMINATION: XR THORACIC SPINE XR LUMBAR SPINE CLINICAL INFORMATION: Muscle spasm of back. COMPARISON: None available. TECHNIQUE: 2 views of the thoracic spine. 3 views of the lumbar spine. FINDINGS: THORACIC SPINE: Median sternotomy wires. Vascular stents involving aorta, bifurcation and branching vessels. Multiple wires overlying the pelvis. Moderate multilevel degenerative changes in the thoracic spine. LUMBAR SPINE: Facet arthritis lower lumbar spine. Multilevel lumbar spondylosis with moderate loss of disc space height at L4-L5. Marked loss of disc space height with subchondral sclerosis at L5-S1. XR/XR thoracic spine 2V IMPRESSION: 1. Moderate multilevel degenerative changes in the thoracic spine. 2. Facet arthritis lower lumbar spine. 3. Multilevel lumbar spondylosis with moderate loss of disc space height at L4-L5. Marked loss of disc space height with subchondral sclerosis at L5-S1.
[2024-04-10 12:47] LABS: Appearance Urine Clear; Color Urine Yellow; Glucose Urine UA >=1000 mg/dL (Negative); Leukocyte Esterase Urine Negative (Negative); Nitrite Urine Negative (Negative); PH 5.5 (5.0-9.0); Specific Gravity - Urine >= 1.030 (1.005-1.025); UMIC TRIGGER UACC YES; Urine Blood Negative (Negative); Urine Ketones Negative (Negative); Urine Protein Negative (Neg-Trace)
[2024-04-10 12:52] LABS: Bacteria Urine None Seen (None Seen); Hyaline Casts Urine 0-2 /LPF (0-2); RBC Urine 0-2 /HPF (0-2); Squamous Epithelial Cell Urine 0-2 /HPF (0-2); WBC Urine 0-5 /HPF (0-5)
[2024-04-10 13:27] LABS: Alanine Aminotransferase 19 U/L (0-40); Albumin Level 4.1 g/dL (3.5-5.0); Alkaline Phosphatase 89 U/L (39-117); Anion Gap 11 (12-20); Aspartate Amino Transferase 22 U/L (5-37); Blood Urea Nitrogen 24 mg/dL (9-16); Calcium 9.9 mg/dL (8.4-10.2); Carbon Dioxide 25 mmol/L (22-29); Chloride 105 mmol/L (96-108); Cholesterol 132 mg/dL (<200); Estimated Glomerular Filt Rate > 60; Glucose Fasting 95 mg/dL (60-99); HDL Cholesterol 50 mg/dL (>40); LDL Cholesterol Calculated 73 mg/dL (<100); Potassium 4.3 mmol/L (3.3-5.1); Sodium 137 mmol/L (135-145); Total Protein 7.6 g/dL (6.5-8.0); Triglycerides 45 mg/dL (<150)
== END 2024-04-10 11:15 | disposition home or self-care (01) ==
LOC: HO.XRAY 11:14
PROVIDERS: PCP Nurse Practitioner Family; Visit Provider Nurse Practitioner Family
DX: Z00.00 Encounter for general adult medical examination without abnormal findings (principal); M62.830 Muscle spasm of back; E78.5 Hyperlipidemia, unspecified
CPT/HCPCS: 36415; 72070; 72100; 80053; 80061; 81001

== ENCOUNTER 2024-07-14 12:48 | Outpatient (AMB) | payer OTHER, SELFPAY ==
--- NOTE | 2024-07-14 13:06 | A.OFFPC_ITS ---
Vital Signs 07/14/24 13:14 Height 5 ft 5 in Weight 134 lb 6 oz BMI 22.4 BP 112/72 Blood Pressure Location Rt brachial Position Sitting Respiration 20 Pulse 88 Pulse Source Pulse Oximeter Temp 98.1 F Temp Source Oral Pulse Oximetry (%) 95 Oxygen Delivery Method Room Air Intake Visit Reasons: 3 mos HTN, DM, HLD Intake Note: patient here for 3 month follow up on DM, HTN, and HLD and med refill. 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 Allergies No Known Allergies Allergy (Verified 07/14/24 13:54) Medication List - Last Reconciled 07/14/24 by Sebas Titus CNP acetaminophen ER (Tylenol Arthritis Pain) 650 mg PO Q12H PRN atorvastatin 80 mg PO BEDTIME 90 days clopidogrel 75 mg PO DAILY 90 days cyclobenzaprine 10 mg PO BID PRN empagliflozin (Jardiance) 10 mg PO DAILY 90 days finasteride (Proscar) 5 mg PO DAILY 90 days gabapentin 300 mg PO DAILY 30 days losartan 50 mg PO DAILY 30 days meloxicam 7.5 mg PO DAILY 14 days mirabegron ER (Myrbetriq) 25 mg PO DAILY tamsulosin (Flomax) 0.4 mg PO BID Tobacco use date assessed: 07/14/24 Fall risk assessment: No Falls in past year Last assessed Fall Risk: 07/14/24 Dental Screening Dental Screen Date: 07/14/24 Did you have a dental visit in the last 12 months?: Yes Did you have a dental problem in the last 6 months where you did not have access to dental care?: No Was dental information given to patient?: Patient has dentist HPI HPI Comments History of Present Illness Details 78-year-old male presents for hypertensi on, diabetes, and hyperlipidemia follow-up He admits to taking his medications as prescribed without adverse reactions He offers no complaints and denies acute symptoms at this time [facility] Medical History No pertinent past medical history Surgical History H/O heart surgery Family History Father Stroke Mother No problems noted. Sister Blind Social History (Updated 12/31/23 @ 15:01 by DOUG Chaidez) Household Members: None Housing: Apartment Patient Tobacco Use Status: Never used Tobacco e-Cigarette/Vaping Use: Never Used Second Hand Smoke Exposure: No service: Yes Current occupational status: employed Current occupation: [employer] Current occupational exposures/hazards: No Cognitive needs: No Hearing needs: No Vision needs: No Questionnaire PHQ-9 Over the last 2 weeks, how often have you been bothered by any of the following problems? 1. Little interest or pleasure in doing things: not at all 2. Feeling down, depressed, or hopeless: not at all 3. Trouble falling or staying asleep, or sleeping too much: not at all 4. Feeling tired or having little energy: not at all 5. Poor appetite or overeating: not at all 6. Feeling bad about yourself - or that you are a failure or have let yourself or your family down: not at all 7. Trouble concentrating on things, such as reading the newspaper or watching television: not at all 8. Moving or speaking so slowly that other people could have noticed. Or the opposite - being so fidgety or restless that you have been moving around a lot more than usual: not at all 9. Thoughts that you would be better off or of hurting yourself in some way: not at all Total score: 0 Source: Developed by Drs. Reji Ford, Farhana Lawson, Jonnie Gomez and colleagues, with an educational jozef from [employer]. Thrive Questionnaire Date Thrive assessed: 11/26/23 OLIVER-7 AMB Questionnaire OLIVER-7 Date OLIVER - 7 assessed: 11/26/23 Source: Developed by Drs. Reji Ford, Jonnie Mckenzie and colleagues, with an educational jozef from [employer]. Review of Systems Const Details: Const Denies chills, Denies fatigue, Denies fever(s), Denies headache(s) and Denies weakness ENT Denies dizziness and Denies headache(s) Card Denies chest pain, Denies lightheadedness, Denies dyspnea and Denies other (Palpitations) Resp Denies cough, Denies dyspnea, Denies wheezing and Denies other ( shortness of breath) GI Denies abdominal pain, Denies melena, Denies hematochezia, Denies change in bowel habits, Denies dyspepsia and Denies nausea Denies hematuria and Denies dysuria Musc Denies abnormal gait, Denies myalgias, Denies arthralgias, Denies numbness and Denies tingling Skin/Breast Denies rash, Denies unusual bruising and Denies wounds Neuro Denies abnormal gait, Denies dizziness, Denies headache(s), Denies memory loss, Denies numbness, Denies Sensory deficit (Neuro), Denies tingling and Denies weakness Psych Denies anxiety, Denies depression, Denies memory loss Endo Denies cold intolerance, Denies fatigue, Denies heat intolerance, Denies polydipsia and Denies polyuria Aller/Immun Denies wheezing Physical exam (Primary Care) Vital Signs: Last Vital Signs Temp 98.1 F 07/14/24 13:14 Pulse 88 07/14/24 13:14 Resp 20 07/14/24 13:14 BP 112/72 07/14/24 13:14 Pulse Ox 95 07/14/24 13:14 Oxygen Delivery Method Room Air 07/14/24 13:14 BMI result Body Mass Index 22.4 Tobacco/Smoking Status: Tobacco use Status Tobacco use date assessed 07/14/24 07/14/24 13:19 Patient Tobacco Use Status Never used Tobacco 07/14/24 13:08 e-Cigarette/Vaping Use Never Used 07/14/24 13:08 PHQ-9: PHQ-9 Score PHQ-9: Total score 0 07/14/24 13:08 Thrive Assessment: Date of Thrive Assessment Date Thrive assessed 11/26/23 07/14/24 13:08 Const Other: General: no acute distress and well developed Nutritional Appearance: well nourished Orientation/consciousness: patient oriented x3 HENMT Head: Yes normocephalic and Yes atraumatic Eyes General: appearance normal, both eyes and all related structures Pupils: Equal, round and reactive pupils present EOM: EOMs intact bilaterally Resp Effort & Inspection: normal respiratory effort Auscultation: clear to auscultation bilaterally Cardio Rate: regular rate Rhythm: regular rhythm Heart sounds: S1 normal heart sound present, S2 normal heart sound present, no gallops, no murmurs and no rubs GI Palpation (GI): No Abdominal aortic bruit present, Soft to palpation, nontender, No hepatosplenomegaly present and No Rebound tenderness present Auscultation: normal bowel sounds General: Yes no CVA tenderness Back/Spine/Pelvis Back: no CVA tenderness Extrem General: Yes normal to inspection, No edema and No calf tenderness Skin General: warm and dry. Normal skin color. Normal skin turgor Neuro General: patient oriented x3, gait normal and no focal neuro deficit Cranial nerves: Yes Equal, round and reactive pupils present Cognition (Neuro): normal cognition Gait exam (Neuro): Normal gait present Sensory Exam: No Sensory deficit (Neuro) Psych Appearance: grossly normal Affect: normal affect Attitude: cooperative Thought process: Normal thought process present Results AMB Hemoglobin A1c AMB Hemoglobin A1c 6.2 % Last Edit by Jemma Sanabria MA on 07/14/24 14:02 Coding Level of Care Code Est Pt Level 3 (42175) Diagnoses Type 2 diabetes mellitus E11.9 Diabetes mellitus complication status: with neurologic complications Primary hypertension I10 Hypertension type: primary hypertension Hyperlipidemia E78.5 Assessment & Plan Assessment & Plan (1) Type 2 diabetes mellitus: Code(s): E11.9 - Type 2 diabetes mellitus without complications Category: Medical Qualifiers: Diabetes mellitus complication status: with neurologic complications Plan: A1c today 6.2%, within goal of less than 7.0%. Previous A1c was 6.5% Continue current treatment regimen ADA diet and routine exercise encouraged Follow-up in 3 months or sooner with symptoms or concerns Verbalized understanding and agreed with the treatment plan (2) Hypertension: Code(s): I10 - Essential (primary) hypertension Category: Medical Qualifiers: Hypertension type: primary hypertension Qualified Code(s): I10 - Essential (primary) hypertension Plan: Blood pressure today is 112/72, within goal of less than 130/80 Continue current treatment regimen Low-sodium diet encouraged Follow-up in 3 months or sooner with symptoms or concerns Verbalized understanding and agreed with treatment plan (3) Hyperlipidemia: Code(s): E78.5 - Hyperlipidemia, unspecified Category: Medical Plan: Recent triglyceride, total cholesterol, LDL, and HDL levels are unremarkable, 45, 132, 73, and 50 respectively Continue current treatment regimen Best to limit foods high in saturated fat and avoid foods high in trans fat Routine exercise encouraged Verbalized understanding and agreed with the plan Orders: Orders AMB Hemoglobin A1c Today Z13.9 - Encounter for screening, unspecified Medications: Changed From losartan 50 mg PO DAILY 30 days 30 tabs 4RF To losartan 50 mg PO DAILY 90 days 90 tabs 1RF
[2024-07-14 13:14] VITALS: BP 112/72; PULSE 88; RESP 20; TEMP 36.7; O2SAT 95; BMI 22.4
== END 2024-07-14 14:09 | disposition home or self-care (01) ==
LOC: HO.HMCFM 12:49
PROVIDERS: PCP Nurse Practitioner Family; Visit Provider Nurse Practitioner Family
DX: E11.9 Type 2 diabetes mellitus without complications (principal); I10 Essential (primary) hypertension; E78.5 Hyperlipidemia, unspecified; Z13.9 Encounter for screening, unspecified

== ENCOUNTER → 2024-07-14 12:48 | Outpatient (BNVA) | payer OTHER, SELFPAY | PROVIDERS: PCP Nurse Practitioner Family; Visit Provider Nurse Practitioner Family | DX: E11.9 Type 2 diabetes mellitus without complications (principal); E78.5 Hyperlipidemia, unspecified; I10 Essential (primary) hypertension | CPT/HCPCS: 83036; 96127; 99212 ==